=== PATIENT | female | born 1935 | race American Indian/Alaskan Native ===

== ENCOUNTER 2019-07-26 10:02 | Inpatient (IN) | payer MEDICARE ==
--- NOTE | 2019-07-26 10:47 | Emergency Department Report ---
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 Upon admission to [place] It was discussed with family that the patient was not meeting her caloric goals prior to discharge from the hospital and will likely need a PEG tube. Family deferred intervention at that time and wanted a trial to see if patient would eat her own home mad food for better po intake. Increased generalized weakness and decrease responsiveness reported by [facility]. on 07/21 labs sodium was 162. Pt as been receiving IVF D5 125ml/hr since 07/22 without improvement. Pt also pulling out her IV's. At baseline pt can commun icate, Ao x1, and needs maximum assistance with adls. Pt has a signed DNR on chart dated 07/13/19 - Related Data Allergies Allergy/AdvReac Type Severity Reaction Status Date / Time No Known Allergies Allergy Unverified 07/26/19 11:37 ED Review of Systems ROS: Stated complaint: AMS Other details as noted in HPI Comment: All other systems reviewed and negative ED Past Medical Hx - Past Medical History Previous Medical History?: Yes Hx Hypertension: Yes Hx CVA: Yes (right MCA cva 06/2019) Hx Pulmonary Embolism: Yes (06/2019) Hx of Cancer: Yes (L breast ductal carcinoma ) Additional medical history: ARDS, encephalopathy - Surgical History Past Surgical History?: No - Social History Smoking Status: Never Smoker Substance Use Type: None ED Physical Exam - General Limitations: No Limitations, Altered Mental Status - Other Other exam information: General: No acute distress Head: Atraumatic Eyes: normal appearance ENT: Moist mucous membranes Neck: Normal appearance, no midline tenderness Chest: Clear to auscultation bilaterally CV: Regular rate and rhythm Abdomen: Soft, normal bowel sounds, nontender, nondistended, no rebound or guarding Back: Normal inspection Extremity: Normal inspection infection, full range of motion Neuro: Unresponsive, localizes tactile stimuli, not speaking, not following commands, left sided arm with minimal movement, left leg moves in response to stimulation but no antigravity movement. Right arm strength 4/5, right leg 3/5. Into touch grossly intact Psych: Appropriate behavior Skin: No rash ED Course Vital Signs 07/26/19 07/26/19 07/26/19 10:22 10:25 10:30 Temperature 97.9 F Pulse Rate 114 H 119 H 116 H Respiratory 15 14 14 Rate Blood Pressure Blood Pressure 119/35 [Left] O2 Sat by Pulse 100 Oximetry 07/26/19 07/26/19 07/26/19 10:45 11:00 11:30 Temperature Pulse Rate 123 H 127 H 129 H Respiratory 13 15 18 Rate Blood Pressure 120/44 119/35 123/55 Blood Pressure [Left] O2 Sat by Pulse 100 100 61 L Oximetry 07/26/19 07/26/19 07/26/19 12:00 12:30 13:00 Temperature Pulse Rate 126 H 135 H Respiratory 12 16 Rate Blood Pressure 106/52 110/34 102/48 Blood Pressure [Left] O2 Sat by Pulse 92 81 L Oximetry - Consultations Consultation #1: 07/26/19 12:18 Dr rea with nephro consulted, d5w at 150/ml recommended - Lab Data Result diagrams: 07/26/19 10:51 07/26/19 10:51 Lab Results 07/26/19 07/26/19 07/26/19 Range/Units 10:51 10:51 10:51 WBC 10.0 (4.5-11.0) K/mm3 RBC 4.06 (3.65-5.03) M/mm3 Hgb 10.0 L (10.1-14.3) gm/dl Hct 31.4 (30.3-42.9) % MCV 77 L (79-97) fl MCH 25 L (28-32) pg MCHC 32 (30-34) % RDW 21.4 H (13.2-15.2) % Plt Count 397 (140-440) K/mm3 Lymph % (Auto) Manager Event [place] % (Auto) Manager Event Eos % (Auto) Manager Event Baso % (Auto) Manager Event Lymph # Manager Event [place] # Manager Event Eos # Manager Event Baso # Manager Event Add Manual Diff Complete Total Counted 100 Seg Neutrophils % Manager Event Seg Neuts % (Manual) 96.0 H (40.0-70.0) % Band Neutrophils % 0 % Lymphocytes % (Manual) 4.0 L (13.4-35.0) % Reactive Lymphs % (Man) 0 % Monocytes % (Manual) 0 (0.0-7.3) % Eosinophils % (Manual) 0 (0.0-4.3) % Basophils % (Manual) 0 (0.0-1.8) % Metamyelocytes % 0 % Myelocytes % 0 % Promyelocytes % 0 % Blast Cells % 0 % Nucleated RBC % Not Reportable Seg Neutrophils # Manager Event Seg Neutrophils # Man 9.6 H (1.8-7.7) K/mm3 Band Neutrophils # 0.0 K/mm3 Lymphocytes # (Manual) 0.4 L (1.2-5.4) K/mm3 Abs React Lymphs (Man) 0.0 K/mm3 Monocytes # (Manual) 0.0 (0.0-0.8) K/mm3 Eosinophils # (Manual) 0.0 (0.0-0.4) K/mm3 Basophils # (Manual) 0.0 (0.0-0.1) K/mm3 Metamyelocytes # 0.0 K/mm3 Myelocytes # 0.0 K/mm3 Promyelocytes # 0.0 K/mm3 Blast Cells # 0.0 K/mm3 WBC Morphology Not Reportable Hypersegmented Neuts Not Reportable Hyposegmented Neuts Not Reportable Hypogranular Neuts Not Reportable Smudge Cells Not Reportable Toxic Granulation Not Reportable Toxic Vacuolation Not Reportable Dohle Bodies Not Reportable Pelger-Huet Anomaly Not Reportable David Rods Not Reportable Platelet Estimate Consistent w auto Clumped Platelets Not Reportable Plt Clumps, EDTA Not Reportable Large Platelets Few Giant Platelets Not Reportable Platelet Satelliting Not Reportable Plt Morphology Comment Not Reportable RBC Morphology Not Reportable Dimorphic RBCs Not Reportable Polychromasia Few Hypochromasia Few Poikilocytosis Not Reportable Anisocytosis Not Reportable Microcytosis Not Reportable Macrocytosis Not Reportable Spherocytes Few Pappenheimer Bodies Not Reportable Sickle Cells Not Reportable Target Cells Few Tear Drop Cells Not Reportable Ovalocytes Not Reportable Helmet Cells Not Reportable [place] Bodies Not Reportable [place] Rings Not Reportable [place] Cells Not Reportable Bite Cells Not Reportable Crenated Cell Not Reportable Elliptocytes Few Acanthocytes (Spur) Not Reportable Rouleaux Not Reportable Hemoglobin C Crystals Not Reportable Schistocytes Not Reportable Malaria parasites Not Reportable Eddie Bodies Not Reportable Hem Pathologist Commnt No Sodium 166 H* (137-145) mmol/L Potassium 4.6 (3.6-5.0) mmol/L Chloride 130.5 H (98-107) mmol/L Carbon Dioxide 16 L (22-30) mmol/L Anion Gap 24 mmol/L BUN 83 H (7-17) mg/dL Creatinine 1.9 H (0.7-1.2) mg/dL Estimated GFR 25 ml/min BUN/Creatinine Ratio 44 % Glucose 205 H (65-100) mg/dL Calcium 9.9 (8.4-10.2) mg/dL Magnesium 2.90 H (1.7-2.3) mg/dL Total Bilirubin 0.40 (0.1-1.2) mg/dL AST 20 (5-40) units/L ALT 12 (7-56) units/L Alkaline Phosphatase 118 (35-129) units/L Total Protein 7.4 (6.3-8.2) g/dL Albumin 3.3 L (3.9-5) g/dL Albumin/Globulin Ratio 0.8 % Urine Color (Yellow) Urine Turbidity (Clear) Urine pH (5.0-7.0) Ur Specific [place] (1.003-1.030) Urine Protein (Negative) mg/dL Urine Glucose (UA) (Negative) mg/dL Urine Ketones (Negative) mg/dL Urine Blood (Negative) Urine Nitrite (Negative) Urine Bilirubin (Negative) Urine Urobilinogen (<2.0) mg/dL Ur Leukocyte Esterase (Negative) Urine WBC (Auto) (0.0-6.0) /HPF Urine RBC (Auto) (0.0-6.0) /HPF U Epithel Cells (Auto) (0-13.0) /HPF Urine Bacteria (Auto) (Negative) /HPF Hyaline Casts /LPF Urine Mucus /HPF 07/26/ Range/Units 12:53 WBC (4.5-11.0) K/mm3 RBC (3.65-5.03) M/mm3 Hgb (10.1-14.3) gm/dl Hct (30.3-42.9) % MCV (79-97) fl MCH (28-32) pg MCHC (30-34) % RDW (13.2-15.2) % Plt Count (140-440) K/mm3 Lymph % (Auto) [place] % (Auto) Eos % (Auto) Baso % (Auto) Lymph # [place] # Eos # Baso # Add Manual Diff Total Counted Seg Neutrophils % Seg Neuts % (Manual) (40.0-70.0) % Band Neutrophils % % Lymphocytes % (Manual) (13.4-35.0) % Reactive Lymphs % (Man) % Monocytes % (Manual) (0.0-7.3) % Eosinophils % (Manual) (0.0-4.3) % Basophils % (Manual) (0.0-1.8) % Metamyelocytes % % Myelocytes % % Promyelocytes % % Blast Cells % % Nucleated RBC % Seg Neutrophils # Seg Neutrophils # Man (1.8-7.7) K/mm3 Band Neutrophils # K/mm3 Lymphocytes # (Manual) (1.2-5.4) K/mm3 Abs React Lymphs (Man) K/mm3 Monocytes # (Manual) (0.0-0.8) K/mm3 Eosinophils # (Manual) (0.0-0.4) K/mm3 Basophils # (Manual) (0.0-0.1) K/mm3 Metamyelocytes # K/mm3 Myelocytes # K/mm3 Promyelocytes # K/mm3 Blast Cells # K/mm3 WBC Morphology Hypersegmented Neuts Hyposegmented Neuts Hypogranular Neuts Smudge Cells Toxic Granulation Toxic Vacuolation Dohle Bodies Pelger-Huet Anomaly David Rods Platelet Estimate Clumped Platelets Plt Clumps, EDTA Large Platelets Giant Platelets Platelet Satelliting Plt Morphology Comment RBC Morphology Dimorphic RBCs Polychromasia Hypochromasia Poikilocytosis Anisocytosis Microcytosis Macrocytosis Spherocytes Pappenheimer Bodies Sickle Cells Target Cells Tear Drop Cells Ovalocytes Helmet Cells De Oliveira-[place] Bodies [place] Rings [place] Cells Bite Cells Crenated Cell Elliptocytes Acanthocytes (Spur) Rouleaux Hemoglobin C Crystals Schistocytes Malaria parasites Eddie Bodies Hem Pathologist Commnt Sodium (137-145) mmol/L Potassium (3.6-5.0) mmol/L Chloride (98-107) mmol/L Carbon Dioxide (22-30) mmol/L Anion Gap mmol/L BUN (7-17) mg/dL Creatinine (0.7-1.2) mg/dL Estimated GFR ml/min BUN/Creatinine Ratio % Glucose (65-100) mg/dL Calcium (8.4-10.2) mg/dL Magnesium (1.7-2.3) mg/dL Total Bilirubin (0.1-1.2) mg/dL AST (5-40) units/L ALT (7-56) units/L Alkaline Phosphatase (35-129) units/L Total Protein (6.3-8.2) g/dL Albumin (3.9-5) g/dL Albumin/Globulin Ratio % Urine Color Yellow (Yellow) Urine Turbidity Slightly-cloudy (Clear) Urine pH 5.0 (5.0-7.0) Ur Specific [place] 1.013 (1.003-1.030) Urine Protein <15 mg/dl (Negative) mg/dL Urine Glucose (UA) Neg (Negative) mg/dL Urine Ketones Neg (Negative) mg/dL Urine Blood Neg (Negative) Urine Nitrite Neg (Negative) Urine Bilirubin Neg (Negative) Urine Urobilinogen < 2.0 (<2.0) mg/dL Ur Leukocyte Esterase Neg (Negative) Urine WBC (Auto) 3.0 (0.0-6.0) /HPF Urine RBC (Auto) 7.0 (0.0-6.0) /HPF U Epithel Cells (Auto) < 1.0 (0-13.0) /HPF Urine Bacteria (Auto) 1+ (Negative) /HPF Hyaline Casts 1 /LPF Urine Mucus Few /HPF - EKG Data -: EKG Interpreted by Vt EKG shows normal: sinus rhythm, ST-T waves (lat t wave and inv t wave downward slopinng) Rate: tachycardia (117) - Radiology Data Radiology results: report reviewed (ct head: naf) - Medical Decision Making Altered mental status likely secondary to dehydration due to poor by mouth intake. IV fluids ordered as per recommendation of nephrology. Hospitalist informed for admission. - Differential Diagnosis infection, dehydration, ICH Critical Care Time: No Critical care attestation.: If time is entered above; I have spent that time in minutes in the direct care of this critically ill patient, excluding procedure time. ED Disposition Clinical Impression: Altered mental state, Dehydration, Renal insufficiency, Hx of ischemic right MCA stroke, Breast cancer, left, Hx of pulmonary embolus, Current use of anticoagulant therapy Disposition: OP ADMIT IP TO THIS HOSP Is pt being admited?: Yes Condition: Stable Time of Disposition: 13:38 (Dr pruett/hosp)
[2019-07-26 11:21] LABS: Hematocrit 31.4 % (30.3-42.9); Mean Corpuscular HGB Conc 32 % (30-34); Mean Corpuscular Volume 77 fl (79-97); Platelet Count 397 K/mm3 (140-440); Red Blood Count 4.06 M/mm3 (3.65-5.03)
[2019-07-26 11:25] LABS: Red Cell Distribution Width 21.4 % (13.2-15.2)
[2019-07-26 11:42] LABS: Albumin 3.3 g/dL (3.9-5); Calcium 9.9 mg/dL (8.4-10.2)
[2019-07-26] MEDS ORDERED: DEXTROSE 5% IN WATER 1,000 ML IV SCH ×2 (13:00→17:00)
[2019-07-26 13:05] LABS: Basophils % (Manual) 0 % (0.0-1.8); Eosinophils % (Manual) 0 % (0.0-4.3); Monocytes % (Manual) 0 % (0.0-7.3); Total Cells Counted 100
[2019-07-26 13:07] LABS: Hypochromasia Few; Spherocytes Few; Target Cells Few
[2019-07-26 13:08] LABS: Large Platelets Few; Platelet Estimate Consistent w Auto
[2019-07-26 13:11] LABS: Bacteria,Urine 1+ /HPF (Negative); Bilirubin,Urine NEG (Negative); Blood,Urine NEG (Negative); Color,Urine Yellow (Yellow); Hyaline Casts,Urine 1 /LPF; Mucus,Urine FEW /HPF; Protein,Urine <15 mg/dL mg/dL (Negative); Urobilinogen,Urine < 2.0 mg/dL (<2.0)
--- NOTE | 2019-07-26 13:26 | Cat Scan Report ---
CT head/brain wo con INDICATION / CLINICAL INFORMATION: 84 years Female; ams. TECHNIQUE: Routine CT head without contrast. All CT scans at this location are performed using CT dos e reduction for ALARA by means of automated exposure control. COMPARISON: None. FINDINGS: BRAIN / INTRACRANIAL CONTENTS: Subacute to chronic branch MCA infarct suggested in the right frontopa rietal temporal region. It might be difficult to evaluate for small, catherine-infarct areas of acute isch emia in this region without diffusion imaging by MRI. Small lacunar infarct is seen in the lateral thalamic region on the left. Otherwise, no acute hemorrhage, mass effect, midline shift, hydrocephalus, or acute, large territori al infarct. Mild to moderate cerebral and cerebellar atrophy. There are mild areas of decreased attenuation in the white matter of the cerebral hemispheres. These are nonspecific findings and may be related to microangiopathy (hypertension, diabetes, atheroscleros is), given the patient's age. It might be difficult to evaluate for small areas of ischemia without d iffusion imaging by MRI. CRANIOCERVICAL JUNCTION: No significant abnormality. ORBITS: No significant abnormality of visualized orbits. SINUSES / MASTOIDS: Desiccated secretions seen in the inferior maxillary antrum on the left. 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 No significant atherosclerotic disease appreciated. IMPRESSION: 1. No focal mass, hemorrhage, hydrocephalus, or acute, large territorial infarct. Diffusion imaging b y MRI may be helpful, as described above. Signer Name: Rishi Young MD, III Signed: 07/26/2019 1:22 PM Workstation Name: [id number]
[2019-07-26] MEDS ORDERED: HYDROmorphone 1 MG/1 ML INJ IV PRN (16:31)
[2019-07-26] MEDS ORDERED: oxyCODONE /ACETAMINOPHEN 5-325MG TAB PO PRN (16:31)
[2019-07-26] MEDS ORDERED: ACETAMINOPHEN 325 MG TAB PO PRN (16:31)
[2019-07-26] MEDS ORDERED: ONDANSETRON 4 MG/2 ML INJ IV PRN (16:31)
--- NOTE | 2019-07-26 16:31 | History and Physical Report ---
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 Upon admission to [place] It was discussed with family that the patient was not meeting her caloric goals prior to discharge from the hospital and will likely need a PEG tube. Family deferred intervention at that time and wanted a trial to see if patient would eat her own home made food for better po intake. Increased generalized weakness and decrease responsiveness reported by [facility]. on 07/21 labs sodium was 162. Pt as been receiving IVF D5 125ml/hr since 07/22 without improvement. Pt also pulling out her IV's. At baseline pt can communicate, Ao x1, and needs maximum assistance with adls. Pt has a signed DNR on chart dated 07/13/19 Past Medical History Previous Medical History?: Yes Hypertension: Yes CVA: Yes (right MCA cva 06/2019) Pulmonary Embolism: Yes (06/2019) L breast ductal carcinoma ) Additional medical history: ARDS, encephalopathy Surgical History Past Surgical History?: No Social History Smoking Status: Never Smoker Substance Use Type: None Family History Htn Review of Systems ROS: Stated complaint: AMS Other details as noted in HPI Comment: All other systems reviewed and negative Medications and Allergies Allergies Allergy/AdvReac Type Severity Reaction Status Date / Time No Known Allergies Allergy Unverified 07/26/19 11:37 Home Medications Medication Instructions Recorded Confirmed Last Taken Type Apixaban 5 mg PO BID 07/26/19 07/26/19 Unknown History Ascorbic Acid 500 mg PO DAILY 07/26/19 07/26/19 Unknown History Cholecalciferol Vit D3 1,000 units PO DAILY 07/26/19 07/26/19 Unknown History Colace ORAL LIQ 100 mg PO BID 07/26/19 07/26/19 Unknown History Duloxetine HCl 30 mg PO DAILY 07/26/19 07/26/19 Unknown History Ferrous Sulfate 325 mg PO DAILY 07/26/19 07/26/19 Unknown History Lipitor 40 mg PO QHS 07/26/19 07/26/19 Unknown History Lisinopril 20 mg PO DAILY 07/26/19 07/26/19 Unknown History Melatonin 3 mg PO QHS 07/26/19 07/26/19 Unknown History Miralax 17 gm PO DAILY 07/26/19 07/26/19 Unknown History Norvasc 5 mg PO DAILY 07/26/19 07/26/19 Unknown History Potassium 1 meq PO DAILY 07/26/19 07/26/19 Unknown History Zinc Sulfate 1 cap PO DAILY 07/26/19 07/26/19 Unknown History predniSONE 50 mg PO QHS 07/26/19 07/26/19 Unknown History Active Meds: Active Medications Dextrose (D5w) 1,000 mls @ 150 mls/hr IV DIRECT TERI Exam - Constitutional Vitals: Temp Pulse Resp BP Pulse Ox 97.9 F 120 H 16 102/66 100 07/26/19 10:22 07/26/19 13:50 07/26/19 12:30 07/26/19 15:00 07/26/19 15:00 General appearance: Present: no acute distress, well-nourished, other - EENT Eyes: Present: PERRL ENT: hearing intact, clear oral mucosa, other (Dry Tongue) - Neck Neck: Present: supple, normal ROM - Respiratory Respiratory effort: normal Respiratory: bilateral: CTA Details: Chest L Breast fungating mass 6cmx4 cmx3cm - Cardiovascular Heart rate: 117 Rhythm: regular Heart Sounds: Present: S1 & S2. Absent: rub, click - Extremities Extremities: no ischemia, pulses intact, pulses symmetrical, No edema Peripheral Pulses: within normal limits - Abdominal General gastrointestinal: Present: soft, non-tender, non-distended, normal bowel sounds Female genitourinary: Present: normal - Rectal Rectal Exam: deferred - Integumentary Integumentary: Present: clear, warm, dry - Musculoskeletal Musculoskeletal: gait normal, strength equal bilaterally - Psychiatric Psychiatric: appropriate mood/affect, intact judgment & insight - Neurologic Neurologic: CNII-XII intact, moves all extremities - Allied Health Allied health notes reviewed: nursing, case management Results - Labs CBC & Chem 7: 07/26/19 10:51 07/27/19 03:18 Labs: Laboratory Last Values WBC 10.0 K/mm3 (4.5-11.0) 07/26/19 10:51 RBC 4.06 M/mm3 (3.65-5.03) 07/26/19 10:51 Hgb 10.0 gm/dl (10.1-14.3) L 07/26/19 10:51 Hct 31.4 % (30.3-42.9) 07/26/19 10:51 MCV 77 fl (79-97) L 07/26/19 10:51 MCH 25 pg (28-32) L 07/26/19 10:51 MCHC 32 % (30-34) 07/26/19 10:51 RDW 21.4 % (13.2-15.2) H 07/26/19 10:51 Plt Count 397 K/mm3 (140-440) 07/26/19 10:51 Lymph % (Auto) [facility] 07/26/19 10:51 [place] % (Auto) Freight Associate 07/26/19 10:51 Eos % (Auto) Freight Associate 07/26/19 10:51 Baso % (Auto) Freight Associate 07/26/19 10:51 Lymph # Freight Associate 07/26/19 10:51 [place] # Freight Associate 07/26/19 10:51 Eos # Freight Associate 07/26/19 10:51 Baso # Freight Associate 07/26/19 10:51 Add Manual Diff Complete 07/26/19 10:51 Total Counted 100 07/26/19 10:51 Seg Neutrophils % Freight Associate 07/26/19 10:51 Seg Neuts % (Manual) 96.0 % (40.0-70.0) H 07/26/19 10:51 Band Neutrophils % 0 % 07/26/19 10:51 Lymphocytes % (Manual) 4.0 % (13.4-35.0) L 07/26/19 10:51 Reactive Lymphs % (Man) 0 % 07/26/19 10:51 Monocytes % (Manual) 0 % (0.0-7.3) 07/26/19 10:51 Eosinophils % (Manual) 0 % (0.0-4.3) 07/26/19 10:51 Basophils % (Manual) 0 % (0.0-1.8) 07/26/19 10:51 Metamyelocytes % 0 % 07/26/19 10:51 Myelocytes % 0 % 07/26/19 10:51 Promyelocytes % 0 % 07/26/19 10:51 Blast Cells % 0 % 07/26/19 10:51 Nucleated RBC % Not Reportable 07/26/19 10:51 Seg Neutrophils # Freight Associate 07/26/19 10:51 Seg Neutrophils # Man 9.6 K/mm3 (1.8-7.7) H 07/26/19 10:51 Band Neutrophils # 0.0 K/mm3 07/26/19 10:51 Lymphocytes # (Manual) 0.4 K/mm3 (1.2-5.4) L 07/26/19 10:51 Abs React Lymphs (Man) 0.0 K/mm3 07/26/19 10:51 Monocytes # (Manual) 0.0 K/mm3 (0.0-0.8) 07/26/19 10:51 Eosinophils # (Manual) 0.0 K/mm3 (0.0-0.4) 07/26/19 10:51 Basophils # (Manual) 0.0 K/mm3 (0.0-0.1) 07/26/19 10:51 Metamyelocytes # 0.0 K/mm3 07/26/19 10:51 Myelocytes # 0.0 K/mm3 07/26/19 10:51 Promyelocytes # 0.0 K/mm3 07/26/19 10:51 Blast Cells # 0.0 K/mm3 07/26/19 10:51 WBC Morphology Not Reportable 07/26/19 10:51 Hypersegmented Neuts Not Reportable 07/26/19 10:51 Hyposegmented Neuts Not Reportable 07/26/19 10:51 Hypogranular Neuts Not Reportable 07/26/19 10:51 Smudge Cells Not Reportable 07/26/19 10:51 Toxic Granulation Not Reportable 07/26/19 10:51 Toxic Vacuolation Not Reportable 07/26/19 10:51 Dohle Bodies Not Reportable 07/26/19 10:51 Pelger-Huet Anomaly Not Reportable 07/26/19 10:51 David Rods Not Reportable 07/26/19 10:51 Platelet Estimate Consistent w auto 07/26/19 10:51 Clumped Platelets Not Reportable 07/26/19 10:51 Plt Clumps, EDTA Not Reportable 07/26/19 10:51 Large Platelets Few 07/26/19 10:51 Giant Platelets Not Reportable 07/26/19 10:51 Platelet Satelliting Not Reportable 07/26/19 10:51 Plt Morphology Comment Not Reportable 07/26/19 10:51 RBC Morphology Not Reportable 07/26/19 10:51 Dimorphic RBCs Not Reportable 07/26/19 10:51 Polychromasia Few 07/26/19 10:51 Hypochromasia Few 07/26/19 10:51 Poikilocytosis Not Reportable 07/26/19 10:51 Anisocytosis Not Reportable 07/26/19 10:51 Microcytosis Not Reportable 07/26/19 10:51 Macrocytosis Not Reportable 07/26/19 10:51 Spherocytes Few 07/26/19 10:51 Pappenheimer Bodies Not Reportable 07/26/19 10:51 Sickle Cells Not Reportable 07/26/19 10:51 Target Cells Few 07/26/19 10:51 Tear Drop Cells Not Reportable 07/26/19 10:51 Ovalocytes Not Reportable 07/26/19 10:51 Helmet Cells Not Reportable 07/26/19 10:51 [place] Bodies Not Reportable 07/26/19 10:51 Britt Rings Not Reportable 07/26/19 10:51 [place] Cells Not Reportable 07/26/19 10:51 Bite Cells Not Reportable 07/26/19 10:51 Crenated Cell Not Reportable 07/26/19 10:51 Elliptocytes Few 07/26/19 10:51 Acanthocytes (Spur) Not Reportable 07/26/19 10:51 Rouleaux Not Reportable 07/26/19 10:51 Hemoglobin C Crystals Not Reportable 07/26/19 10:51 Schistocytes Not Reportable 07/26/19 10:51 Malaria parasites Not Reportable 07/26/19 10:51 Eddie Bodies Not Reportable 07/26/19 10:51 Hem Pathologist Commnt No 07/26/19 10:51 Sodium 166 mmol/L (137-145) H* 07/26/19 10:51 Potassium 4.6 mmol/L (3.6-5.0) 07/26/19 10:51 Chloride 130.5 mmol/L (98-107) H 07/26/19 10:51 Carbon Dioxide 16 mmol/L (22-30) L 07/26/19 10:51 Anion Gap 24 mmol/L 07/26/19 10:51 BUN 83 mg/dL (7-17) H 07/26/19 10:51 Creatinine 1.9 mg/dL (0.7-1.2) H 07/26/19 10:51 Estimated GFR 25 ml/min 07/26/19 10:51 BUN/Creatinine Ratio 44 % 07/26/19 10:51 Glucose 205 mg/dL (65-100) H 07/26/19 10:51 POC Glucose 232 (70-105) H 07/26/19 10:45 Calcium 9.9 mg/dL (8.4-10.2) 07/26/19 10:51 Magnesium 2.90 mg/dL (1.7-2.3) H 07/26/19 10:51 Total Bilirubin 0.40 mg/dL (0.1-1.2) 07/26/19 10:51 AST 20 units/L (5-40) 07/26/19 10:51 ALT 12 units/L (7-56) 07/26/19 10:51 Alkaline Phosphatase 118 units/L (35-129) 07/26/19 10:51 Total Protein 7.4 g/dL (6.3-8.2) 07/26/19 10:51 Albumin 3.3 g/dL (3.9-5) L 07/26/19 10:51 Albumin/Globulin Ratio 0.8 % 07/26/19 10:51 Urine Color Yellow (Yellow) 07/26/19 12:53 Urine Turbidity Slightly-cloudy (Clear) 07/26/19 12:53 Urine pH 5.0 (5.0-7.0) 07/26/19 12:53 Ur Specific [place] 1.013 (1.003-1.030) 07/26/19 12:53 Urine Protein <15 mg/dl mg/dL (Negative) 07/26/19 12:53 Urine Glucose (UA) Neg mg/dL (Negative) 07/26/19 12:53 Urine Ketones Neg mg/dL (Negative) 07/26/19 12:53 Urine Blood Neg (Negative) 07/26/19 12:53 Urine Nitrite Neg (Negative) 07/26/19 12:53 Urine Bilirubin Neg (Negative) 07/26/19 12:53 Urine Urobilinogen < 2.0 mg/dL (<2.0) 07/26/19 12:53 Ur Leukocyte Esterase Neg (Negative) 07/26/19 12:53 Urine WBC (Auto) 3.0 /HPF (0.0-6.0) 07/26/19 12:53 Urine RBC (Auto) 7.0 /HPF (0.0-6.0) 07/26/19 12:53 U Epithel Cells (Auto) < 1.0 /HPF (0-13.0) 07/26/19 12:53 Urine Bacteria (Auto) 1+ /HPF (Negative) 07/26/19 12:53 Hyaline Casts 1 /LPF 07/26/19 12:53 Urine Mucus Few /HPF 07/26/19 12:53 Short CBC 07/26/19 Range/Units 10:51 WBC 10.0 (4.5-11.0) K/mm3 Hgb 10.0 L (10.1-14.3) gm/dl Hct 31.4 (30.3-42.9) % Plt Count 397 (140-440) K/mm3 BMP 07/26/19 10:51 Sodium 166 H* Potassium 4.6 Chloride 130.5 H Carbon Dioxide 16 L BUN 83 H Creatinine 1.9 H Glucose 205 H Calcium 9.9 Liver Function 07/26/19 Range/Units 10:51 Total Bilirubin 0.40 (0.1-1.2) mg/dL AST 20 (5-40) units/L ALT 12 (7-56) units/L Alkaline Phosphatase 118 (35-129) units/L Albumin 3.3 L (3.9-5) g/dL Urine 07/26/19 Range/Units 12:53 Urine Color Yellow (Yellow) Urine pH 5.0 (5.0-7.0) Ur Specific [place] 1.013 (1.003-1.030) Urine Protein <15 mg/dl (Negative) mg/dL Urine Glucose (UA) Neg (Negative) mg/dL - Imaging and Cardiology EKG: report reviewed (Sinus Tachycardia) CT Scan - head: report reviewed (No acute findings) Assessment and Plan Advance Directives: Yes Plan of care discussed with patient/family: Yes - Patient Problems (1) Acute encephalopathy Current Visit: Yes Status: Acute Plan to address problem: Sec to dehydration and High Na levels Metabolic (2) Hypernatremia Current Visit: Yes Status: Acute Plan to address problem: IV D5w for now (3) EDILMA (acute kidney injury) Current Visit: Yes Status: Acute Plan to address problem: IV Fluids for now C/w ATN Monitor creatinine (4) Breast cancer Current Visit: Yes Status: Chronic Qualifiers: Breast location: central portion of breast Plan to address problem: Fungating mass F/u with Dr Carreon as outpatient (5) HTN (hypertension) Current Visit: Yes Status: Chronic Qualifiers: Hypertension type: essential hypertension Qualified Code(s): I10 - Essential (primary) hypertension Plan to address problem: On Catapress patch (6) Poor fluid intake Current Visit: Yes Status: Chronic Plan to address problem: Will need PEG GI consult (7) Malnutrition Current Visit: Yes Status: Chronic Qualifiers: Malnutrition type: protein-calorie malnutrition Protein-calorie malnutri tion severity: moderate Qualified Code(s): E44.0 - Moderate protein-calorie malnutrition Plan to address problem: Dietitian consult (8) DVT prophylaxis Current Visit: Yes Status: Acute Plan to address problem: On Eliquis and GI prophylaxis
[2019-07-26] MEDS ORDERED: FAMOTIDINE 20 MG TAB PO SCH ×2 (22:00)
[2019-07-27] MEDS ORDERED: ACETAMINOPHEN 325 MG TAB PO PRN (01:42)
[2019-07-27] MEDS ORDERED: ONDANSETRON 4 MG/2 ML INJ IV PRN (01:42)
[2019-07-27] MEDS ORDERED: NON-FORMULARY EACH (Apixaban 5 MG) PO SCH (01:45)
[2019-07-27] MEDS: D5W/0.45% NACL 1,000 ML IV SCH ×4 (02:42→22:56)
[2019-07-27] MEDS: APIXABAN 5 MG TAB PO SCH ×3 (02:43→21:44)
[2019-07-27 04:36] LABS: Albumin 3.1 g/dL (3.9-5); Calcium 9.4 mg/dL (8.4-10.2)
[2019-07-27 08:24] LABS: Basophils % (Auto) 0.3 % (0.0-1.8); Eosinophils % (Auto) 0.2 % (0.0-4.3); Hematocrit 28.1 % (30.3-42.9); Hemoglobin 8.8 gm/dl (10.1-14.3); Lymphocytes # (Auto) 1.1 K/mm3 (1.2-5.4); Lymphocytes % (Auto) 9.3 % (13.4-35.0); Mean Corpuscular HGB Conc 31 % (30-34); Mean Corpuscular Volume 77 fl (79-97); Monocytes # (Auto) 0.8 K/mm3 (0.0-0.8); Monocytes % (Auto) 6.8 % (0.0-7.3); Platelet Count 321 K/mm3 (140-440); Red Blood Count 3.65 M/mm3 (3.65-5.03)
[2019-07-27 08:27] LABS: Red Cell Distribution Width 22.1 % (13.2-15.2)
[2019-07-27] MEDS: FAMOTIDINE 20 MG/2 ML INJ IV SCH ×2 (09:38→21:44)
[2019-07-27] MEDS ORDERED: FAMOTIDINE 20 MG/2 ML INJ IV SCH (10:00)
[2019-07-27] MEDS ORDERED: cloNIDine TTS 0.2 MG/24 HR PATCH TD SCH (10:00)
--- NOTE | 2019-07-27 12:31 | Consultation ---
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 No PEG tube placed previously but was discussed with family. History obtained from chart review, as patient unable to provide history herself. In short, she was found to have weakness and decreased responsiveness reported by [facility], with labs on 07/21 showing sodium of 162; she was reportedly on D5W 125ml/hr since 07/22 but was noted to be pulling her IV lines. Past History Past Medical History: cancer, pulmonary embolism, stroke Past Surgical History: No surgical history Social history: no significant social history Family history: no significant family history Medications and Allergies Allergies Allergy/AdvReac Type Severity Reaction Status Date / Time No Known Allergies Allergy Unverified 07/26/19 11:37 Home Medications Medication Instructions Recorded Confirmed Last Taken Type Apixaban 5 mg PO BID 07/26/19 07/26/19 Unknown History Ascorbic Acid 500 mg PO DAILY 07/26/19 07/26/19 Unknown History Cholecalciferol Vit D3 1,000 units PO DAILY 07/26/19 07/26/19 Unknown History Colace ORAL LIQ 100 mg PO BID 07/26/19 07/26/19 Unknown History Duloxetine HCl 30 mg PO DAILY 07/26/19 07/26/19 Unknown History Ferrous Sulfate 325 mg PO DAILY 07/26/19 07/26/19 Unknown History Lipitor 40 mg PO QHS 07/26/19 07/26/19 Unknown History Lisinopril 20 mg PO DAILY 07/26/19 07/26/19 Unknown History Melatonin 3 mg PO QHS 07/26/19 07/26/19 Unknown History Miralax 17 gm PO DAILY 07/26/19 07/26/19 Unknown History Norvasc 5 mg PO DAILY 07/26/19 07/26/19 Unknown History Potassium 1 meq PO DAILY 07/26/19 07/26/19 Unknown History Zinc Sulfate 1 cap PO DAILY 07/26/19 07/26/19 Unknown History predniSONE 50 mg PO QHS 07/26/19 07/26/19 Unknown History Active Meds: Active Medications Acetaminophen (Tylenol) 650 mg PO Q4H PRN PRN Reason: Pain MILD(1-3)/Fever >100.5/PAYAN Apixaban (Eliquis) 5 mg PO BID [facility] Last Admin: 07/27/19 09:39 Dose: 5 mg Documented by: Clonidine HCl (Catapres-Tts Patch) 0.2 mg TD Mo [facility] Last Admin: 07/27/19 09:35 Dose: 0.2 mg Documented by: Famotidine (Pepcid) 10 mg IV BID [facility] Last Admin: 07/27/19 09:38 Dose: 10 mg Documented by: Hydromorphone HCl (Dilaudid) 0.5 mg IV Q3H PRN PRN Reason: Pain , Severe (7-10) Dextrose/Sodium Chloride (D5/0.45ns) 1,000 mls @ 150 mls/hr IV DIRECT [facility] Last Admin: 07/27/19 09:34 Dose: 150 mls/hr Documented by: Ondansetron HCl (Zofran) 4 mg IV Q8H PRN PRN Reason: Nausea And Vomiting Oxycodone/Acetaminophen (Percocet 5/325) 1 tab PO Q6H PRN PRN Reason: Pain, Moderate (4-6) Sodium Chloride (Sodium Chloride Flush Syringe 10 Ml) 10 ml IV BID [facility] Last Admin: 07/27/19 09:40 Dose: 10 ml Documented by: Sodium Chloride (Sodium Chloride Flush Syringe 10 Ml) 10 ml IV PRN PRN PRN Reason: LINE FLUSH Review of Systems ROS unobtainable: due to mental status Exam - Vital Signs Vital signs: Vital Signs Temp Pulse Resp BP Pulse Ox 97.9 F 114 H 15 119/35 100 07/26/19 10:22 07/26/19 10:22 07/26/19 10:22 07/26/19 10:22 07/26/19 10:22 - Physical Exam Narrative exam: General appearance: no acute distress, chronically ill appearing Eyes: PERRL ENT: hearing intact Neck: supple, normal ROM Respiratory: bilateral CTA, left breast mass noted CV: RRR, S1/S2 Extremities: no ischemia, pulses intact, pulses symmetrical, No edema Peripheral Pulses: within normal limits Gastrointestinal: soft, non-tender, non-distended, normal bowel sounds Integumentary: Present: clear, warm, dry Musculoskeletal: gait normal, strength equal bilaterally Psychiatric: confused Neurologic: confused, unable to respond to commands, moves extremities spontaneously Results - Lab Results 07/27/19 07:29 07/27/19 03:18 Most recent lab results Calcium 9.4 mg/dL (8.4-10.2) 07/27/19 03:18 Magnesium 2.90 mg/dL (1.7-2.3) H 07/26/19 10:51 Assessment and Plan # Hypernatremia: likely with decreased thirst mechanism and inability to drink free water in setting of stroke. Improving with D5 1/2NS; ok to continue for now. Agree with GI consult for potential PEG tube placement to allow for free water replacement - daily labs # EDILMA: likely pre-renal and improving with IVF; defer further workup for now. Continue checo-protective measures including avoidance of nephrotoxins, renally dosing meds # Acidosis: likely in setting of EDILMA, but may be worsened by IVF and dilutional acidosis. Start NaHCO3 if worsening tomorrow # HTN: BP reasonable for age. Continue clonidine patch # Hypoalbuminemia: consistent with malnutrition; appreciate GI and dietary recs # Microcytic Anemia: would check for iron deficiency and replete Thank you for this interesting consult; our team will continue to follow with you.
--- NOTE | 2019-07-27 13:39 | Gastroenterology Consultation ---
<JOSE MARTIN POLLARD - Last Filed: 07/27/19 13:42> History of Present Illness - Reason for Consult Consult date: 07/27/19 PEG evaluation / Poor PO intake Requesting physician: TUSHAR WOODALL - History of Present Illness Ms Jama is an 84 y/o [facility]. She was recently hospitalized at [facility] with respiratory failure/ PE -07/2019. She has a past medical hx of left breast CA, previous CVA with left sided weakness. The family previously declined PEG and wanted to see if the patient would start to eat on her own, however, family reports while in rehab, she did not eat very much or drink very much even when they would feed her. On admission the patient was found to have a NA level of 162. BUN/ Creat elevated. Family reconsidering PEG placement. Past History Past Medical History: cancer, pulmonary embolism, stroke Past Surgical History: hysterectomy Social history: lives with family, AND/DNR-allow natural Family history: no significant family history Medications and Allergies Allergies Allergy/AdvReac Type Severity Reaction Status Date / Time No Known Allergies Allergy Unverified 07/26/19 11:37 Home Medications Medication Instructions Recorded Confirmed Last Taken Type Apixaban 5 mg PO BID 07/26/19 07/26/19 Unknown History Ascorbic Acid 500 mg PO DAILY 07/26/19 07/26/19 Unknown History Cholecalciferol Vit D3 1,000 units PO DAILY 07/26/19 07/26/19 Unknown History Colace ORAL LIQ 100 mg PO BID 07/26/19 07/26/19 Unknown History Duloxetine HCl 30 mg PO DAILY 07/26/19 07/26/19 Unknown History Ferrous Sulfate 325 mg PO DAILY 07/26/19 07/26/19 Unknown History Lipitor 40 mg PO QHS 07/26/19 07/26/19 Unknown History Lisinopril 20 mg PO DAILY 07/26/19 07/26/19 Unknown History Melatonin 3 mg PO QHS 07/26/19 07/26/19 Unknown History Miralax 17 gm PO DAILY 07/26/19 07/26/19 Unknown History Norvasc 5 mg PO DAILY 07/26/19 07/26/19 Unknown History Potassium 1 meq PO DAILY 07/26/19 07/26/19 Unknown History Zinc Sulfate 1 cap PO DAILY 07/26/19 07/26/19 Unknown History predniSONE 50 mg PO QHS 07/26/19 07/26/19 Unknown History Active Meds: Active Medications Acetaminophen (Tylenol) 650 mg PO Q4H PRN PRN Reason: Pain MILD(1-3)/Fever >100.5/PAYAN Apixaban (Eliquis) 5 mg PO BID [facility] Last Admin: 07/27/19 09:39 Dose: 5 mg Documented by: Clonidine HCl (Catapres-Tts Patch) 0.2 mg TD Mo [facility] Last Admin: 07/27/19 09:35 Dose: 0.2 mg Documented by: Famotidine (Pepcid) 10 mg IV BID [facility] Last Admin: 07/27/19 09:38 Dose: 10 mg Documented by: Hydromorphone HCl (Dilaudid) 0.5 mg IV Q3H PRN PRN Reason: Pain , Severe (7-10) Dextrose/Sodium Chloride (D5/0.45ns) 1,000 mls @ 150 mls/hr IV DIRECT [facility] Last Admin: 07/27/19 09:34 Dose: 150 mls/hr Documented by: Ondansetron HCl (Zofran) 4 mg IV Q8H PRN PRN Reason: Nausea And Vomiting Oxycodone/Acetaminophen (Percocet 5/325) 1 tab PO Q6H PRN PRN Reason: Pain, Moderate (4-6) Sodium Chloride (Sodium Chloride Flush Syringe 10 Ml) 10 ml IV BID [facility] Last Admin: 07/27/19 09:40 Dose: 10 ml Documented by: Sodium Chloride (Sodium Chloride Flush Syringe 10 Ml) 10 ml IV PRN PRN PRN Reason: LINE FLUSH Review of Systems - Review of Systems ROS unobtainable: due to mental status Exam - Constitutional Vital Signs: Temp Pulse Resp BP Pulse Ox 98.7 F 102 H 18 146/70 99 07/27/19 08:00 07/27/19 09:35 07/27/19 08:19 07/27/19 09:35 07/27/19 08:19 General appearance: no acute distress - EENT Eyes: EOM intact ENT: hearing intact - Neck Neck: supple - Respiratory Respiratory: bilateral: diminished - Cardiovascular Rhythm: regular Heart Sounds: Present: S1 & S2 Extremities: abnormal (left sided weakness) - Gastrointestinal General gastrointestinal: Present: soft, non-tender, normal bowel sounds Rectal Exam: deferred - Integumentary Integumentary: Present: warm, dry - Neurologic Neurological: other (awake, pt does not verbalize ) - Psychiatric Psychiatric: cooperative - Labs CBC & Chem 7: 07/27/19 07:29 07/27/19 03:18 Lab Results: Laboratory Results - last 24 hr 07/26/19 07/27/19 07/27/19 10:45 03:18 07:29 WBC 11.6 H RBC 3.65 Hgb 8.8 L Hct 28.1 L MCV 77 L MCH 24 L MCHC 31 RDW 22.1 H Plt Count 321 Lymph % (Auto) 9.3 L [place] % (Auto) 6.8 Eos % (Auto) 0.2 Baso % (Auto) 0.3 Lymph # 1.1 L [place] # 0.8 Eos # 0.0 Baso # 0.0 Seg Neutrophils % 83.4 H Seg Neutrophils # 9.6 H Sodium 156 H D Potassium 4.3 Chloride 126.3 H Carbon Dioxide 13 L Anion Gap 21 BUN 75 H Creatinine 1.7 H Estimated GFR 35 BUN/Creatinine Ratio 44 Glucose 269 H POC Glucose 232 H Hemoglobin A1c Calcium 9.4 Total Bilirubin 0.40 AST 30 ALT 13 Alkaline Phosphatase 107 Total Protein 7.2 Albumin 3.1 L Albumin/Globulin Ratio 0.8 07/27/19 07:29 WBC RBC Hgb Hct MCV MCH MCHC RDW Plt Count Lymph % (Auto) [place] % (Auto) Eos % (Auto) Baso % (Auto) Lymph # [place] # Eos # Baso # Seg Neutrophils % Seg Neutrophils # Sodium Potassium Chloride Carbon Dioxide Anion Gap BUN Creatinine Estimated GFR BUN/Creatinine Ratio Glucose POC Glucose Hemoglobin A1c 5.9 Calcium Total Bilirubin AST ALT Alkaline Phosphatase Total Protein Albumin Albumin/Globulin Ratio Assessment and Plan 1. Malnutrition 2. Hypernatremia 3. Hx of CVA 4. Hx of PE on Eliquis 5. Elevated BUN/ Creat. - Pt is currently on Eliquis. Son is at bedside and wants to talk to another family member prior to going forward with PEG. D/W son and regarding benefits vs risk. Pt will need to be off of Eliquis 48 hours if family is agreeable to PEG. - PC NETWORK TECHNICIAN evaluation to give diet orders ( pt was on pureed/ nectar thickened liquids before. - Monitor H/H noted today that is decreased, suspect this was related to hemo- concentration on admission, rather than actual drop. - Check INR - Further recommendations to follow. <DEMETRICE AHN - Last Filed: 07/27/19 19:32> Medications and Allergies Active Meds: Active Medications Acetaminophen (Tylenol) 650 mg PO Q4H PRN PRN Reason: Pain MILD(1-3)/Fever >100.5/PAYAN Apixaban (Eliquis) 5 mg PO BID [facility] Last Admin: 07/27/19 09:39 Dose: 5 mg Documented by: Clonidine HCl (Catapres-Tts Patch) 0.2 mg TD Mo [facility] Last Admin: 07/27/19 09:35 Dose: 0.2 mg Documented by: Famotidine (Pepcid) 10 mg IV BID [facility] Last Admin: 07/27/19 09:38 Dose: 10 mg Documented by: Hydromorphone HCl (Dilaudid) 0.5 mg IV Q3H PRN PRN Reason: Pain , Severe (7-10) Dextrose/Sodium Chloride (D5/0.45ns) 1,000 mls @ 150 mls/hr IV DIRECT [facility] Last Admin: 07/27/19 15:57 Dose: 150 mls/hr Documented by: Ondansetron HCl (Zofran) 4 mg IV Q8H PRN PRN Reason: Nausea And Vomiting Oxycodone/Acetaminophen (Percocet 5/325) 1 tab PO Q6H PRN PRN Reason: Pain, Moderate (4-6) Sodium Chloride (Sodium Chloride Flush Syringe 10 Ml) 10 ml IV BID [facility] Last Admin: 07/27/19 09:40 Dose: 10 ml Documented by: Sodium Chloride (Sodium Chloride Flush Syringe 10 Ml) 10 ml IV PRN PRN PRN Reason: LINE FLUSH Exam - Constitutional Vital Signs: Temp Pulse Resp BP Pulse Ox 98.4 F 90 20 153/65 100 07/27/19 13:14 07/27/19 13:14 07/27/19 13:14 07/27/19 13:14 07/27/19 13:14 - Labs CBC & Chem 7: 07/27/19 07:29 07/27/19 03:18 Lab Results: Laboratory Results - last 24 hr 07/27/19 07/27/19 07/27/19 03:18 07:29 07:29 WBC 11.6 H RBC 3.65 Hgb 8.8 L Hct 28.1 L MCV 77 L MCH 24 L MCHC 31 RDW 22.1 H Plt Count 321 Lymph % (Auto) 9.3 L [place] % (Auto) 6.8 Eos % (Auto) 0.2 Baso % (Auto) 0.3 Lymph # 1.1 L [place] # 0.8 Eos # 0.0 Baso # 0.0 Seg Neutrophils % 83.4 H Seg Neutrophils # 9.6 H PT INR Sodium 156 H D Potassium 4.3 Chloride 126.3 H Carbon Dioxide 13 L Anion Gap 21 BUN 75 H Creatinine 1.7 H Estimated GFR 35 BUN/Creatinine Ratio 44 Glucose 269 H Hemoglobin A1c 5.9 Calcium 9.4 Total Bilirubin 0.40 AST 30 ALT 13 Alkaline Phosphatase 107 Total Protein 7.2 Albumin 3.1 L Albumin/Globulin Ratio 0.8 07/27/19 14:06 WBC RBC Hgb Hct MCV MCH MCHC RDW Plt Count Lymph % (Auto) [place] % (Auto) Eos % (Auto) Baso % (Auto) Lymph # [place] # Eos # Baso # Seg Neutrophils % Seg Neutrophils # PT 20.0 H INR 1.67 H Sodium Potassium Chloride Carbon Dioxide Anion Gap BUN Creatinine Estimated GFR BUN/Creatinine Ratio Glucose Hemoglobin A1c Calcium Total Bilirubin AST ALT Alkaline Phosphatase Total Protein Albumin Albumin/Globulin Ratio Assessment and Plan Patient seen and examined. I have reviewed the advanced practitioner's evaluation, assessment, and plan, and agree with them. I note the following additions: Patient family is determining whether they would like to proceed with PEG; please call us back if the family would like to proceed with the PEG Will need to hold Eliquis for 48 hours prior to placement
[2019-07-27 14:42] LABS: INR 1.67 (0.87-1.13)
--- NOTE | 2019-07-27 16:02 | Progress Note ---
Assessment and Plan Assessment and plan: Acute metabolic encephalopathy Sec to EDILMA and dehydration , hypernatremia Hypernatremia Improving Cont IV D5w for now Acute kidney injury) due to vasomotor nephropathy IV Fluids for now C/w ATN Monitor creatinine Breast cancer Fungating mass on left F/u with Dr Carreon as outpatient HTN (hypertension) On Catapress patch Poor fluid intake GI consulted for poss PEG Malnutrition Dietitian consult DVT prophylaxis On Eliquis History Interval history: Altered mental status Hospitalist Physical - Physical exam Narrative exam: Gen: Not in acute distress, lying in bed HEENT: Normocephalic, atraumatic Neck: supple, no JVD Heart: S1 and S2 reg, no murmurs, rubs or gallop Lungs: Clear to auscultation, no wheezing Breast:Left breast mass Abd: soft, non tender , non distended, normal BS Ext: No edema, no clubbing, no cyanosis Neuro: Awake,altered mental status - Constitutional Vitals: Temp Pulse Resp BP Pulse Ox 98.4 F 90 20 153/65 100 07/27/19 13:14 07/27/19 13:14 07/27/19 13:14 07/27/19 13:14 07/27/19 13:14 General appearance: Present: no acute distress Results - Labs CBC & Chem 7: 07/27/19 07:29 07/27/19 03:18 Labs: Laboratory Last Values WBC 11.6 K/mm3 (4.5-11.0) H 07/27/19 07:29 RBC 3.65 M/mm3 (3.65-5.03) 07/27/19 07:29 Hgb 8.8 gm/dl (10.1-14.3) L 07/27/19 07:29 Hct 28.1 % (30.3-42.9) L 07/27/19 07:29 MCV 77 fl (79-97) L 07/27/19 07:29 MCH 24 pg (28-32) L 07/27/19 07:29 MCHC 31 % (30-34) 07/27/19 07:29 RDW 22.1 % (13.2-15.2) H 07/27/19 07:29 Plt Count 321 K/mm3 (140-440) 07/27/19 07:29 Lymph % (Auto) 9.3 % (13.4-35.0) L 07/27/19 07:29 [place] % (Auto) 6.8 % (0.0-7.3) 07/27/19 07:29 Eos % (Auto) 0.2 % (0.0-4.3) 07/27/19 07:29 Baso % (Auto) 0.3 % (0.0-1.8) 07/27/19 07:29 Lymph # 1.1 K/mm3 (1.2-5.4) L 07/27/19 07:29 [place] # 0.8 K/mm3 (0.0-0.8) 07/27/19 07: Eos # 0.0 K/mm3 (0.0-0.4) 07/27/19 07: Baso # 0.0 K/mm3 (0.0-0.1) 07/27/19 07:29 Add Manual Diff Complete 07/26/19 10:51 Total Counted 100 07/26/19 10:51 Seg Neutrophils % 83.4 % (40.0-70.0) H 07/27/19 07:29 Seg Neuts % (Manual) 96.0 % (40.0-70.0) H 07/26/19 10:51 Band Neutrophils % 0 % 07/26/19 10:51 Lymphocytes % (Manual) 4.0 % (13.4-35.0) L 07/26/19 10:51 Reactive Lymphs % (Man) 0 % 07/26/19 10:51 Monocytes % (Manual) 0 % (0.0-7.3) 07/26/19 10:51 Eosinophils % (Manual) 0 % (0.0-4.3) 07/26/19 10:51 Basophils % (Manual) 0 % (0.0-1.8) 07/26/19 10:51 Metamyelocytes % 0 % 07/26/19 10:51 Myelocytes % 0 % 07/26/19 10:51 Promyelocytes % 0 % 07/26/19 10:51 Blast Cells % 0 % 07/26/19 10:51 Nucleated RBC % Not Reportable 07/26/19 10:51 Seg Neutrophils # 9.6 K/mm3 (1.8-7.7) H 07/27/19 07:29 Seg Neutrophils # Man 9.6 K/mm3 (1.8-7.7) H 07/26/19 10:51 Band Neutrophils # 0.0 K/mm3 07/26/19 10:51 Lymphocytes # (Manual) 0.4 K/mm3 (1.2-5.4) L 07/26/19 10:51 Abs React Lymphs (Man) 0.0 K/mm3 07/26/19 10:51 Monocytes # (Manual) 0.0 K/mm3 (0.0-0.8) 07/26/19 10:51 Eosinophils # (Manual) 0.0 K/mm3 (0.0-0.4) 07/26/19 10:51 Basophils # (Manual) 0.0 K/mm3 (0.0-0.1) 07/26/19 10:51 Metamyelocytes # 0.0 K/mm3 07/26/19 10:51 Myelocytes # 0.0 K/mm3 07/26/19 10:51 Promyelocytes # 0.0 K/mm3 07/26/19 10:51 Blast Cells # 0.0 K/mm3 07/26/19 10:51 WBC Morphology Not Reportable 07/26/19 10:51 Hypersegmented Neuts Not Reportable 07/26/19 10:51 Hyposegmented Neuts Not Reportable 07/26/19 10:51 Hypogranular Neuts Not Reportable 07/26/19 10:51 Smudge Cells Not Reportable 07/26/19 10:51 Toxic Granulation Not Reportable 07/26/19 10:51 Toxic Vacuolation Not Reportable 07/26/19 10:51 Dohle Bodies Not Reportable 07/26/19 10:51 Pelger-Huet Anomaly Not Reportable 07/26/19 10:51 David Rods Not Reportable 07/26/19 10:51 Platelet Estimate Consistent w auto 07/26/19 10:51 Clumped Platelets Not Reportable 07/26/19 10:51 Plt Clumps, EDTA Not Reportable 07/26/19 10:51 Large Platelets Few 07/26/19 10:51 Giant Platelets Not Reportable 07/26/19 10:51 Platelet Satelliting Not Reportable 07/26/19 10:51 Plt Morphology Comment Not Reportable 07/26/19 10:51 RBC Morphology Not Reportable 07/26/19 10:51 Dimorphic RBCs Not Reportable 07/26/19 10:51 Polychromasia Few 07/26/19 10:51 Hypochromasia Few 07/26/19 10:51 Poikilocytosis Not Reportable 07/26/19 10:51 Anisocytosis Not Reportable 07/26/19 10:51 Microcytosis Not Reportable 07/26/19 10:51 Macrocytosis Not Reportable 07/26/19 10:51 Spherocytes Few 07/26/19 10:51 Pappenheimer Bodies Not Reportable 07/26/19 10:51 Sickle Cells Not Reportable 07/26/19 10:51 Target Cells Few 07/26/19 10:51 Tear Drop Cells Not Reportable 07/26/19 10:51 Ovalocytes Not Reportable 07/26/19 10:51 Helmet Cells Not Reportable 07/26/19 10:51 [place] Bodies Not Reportable 07/26/19 10:51 Gaylord Rings Not Reportable 07/26/19 10:51 Bernarda Cells Not Reportable 07/26/19 10:51 Bite Cells Not Reportable 07/26/19 10:51 Crenated Cell Not Reportable 07/26/19 10:51 Elliptocytes Few 07/26/19 10:51 Acanthocytes (Spur) Not Reportable 07/26/19 10:51 Rouleaux Not Reportable 07/26/19 10:51 Hemoglobin C Crystals Not Reportable 07/26/19 10:51 Schistocytes Not Reportable 07/26/19 10:51 Malaria parasites Not Reportable 07/26/19 10:51 Eddie Bodies Not Reportable 07/26/19 10:51 Hem Pathologist Commnt No 07/26/19 10:51 PT 20.0 Sec. (12.2-14.9) H 07/27/19 14:06 INR 1.67 (0.87-1.13) H 07/27/19 14:06 Sodium 156 mmol/L (137-145) H D 07/27/19 03:18 Potassium 4.3 mmol/L (3.6-5.0) 07/27/19 03:18 Chloride 126.3 mmol/L (98-107) H 07/27/19 03:18 Carbon Dioxide 13 mmol/L (22-30) L 07/27/19 03:18 Anion Gap 21 mmol/L 07/27/19 03:18 BUN 75 mg/dL (7-17) H 07/27/19 03:18 Creatinine 1.7 mg/dL (0.7-1.2) H 07/27/19 03:18 Estimated GFR 35 ml/min 07/27/19 03:18 BUN/Creatinine Ratio 44 % 07/27/19 03:18 Glucose 269 mg/dL (65-100) H 07/27/19 03:18 POC Glucose 232 (70-105) H 07/26/19 10:45 Hemoglobin A1c 5.9 % (4-6) 07/27/19 07:29 Calcium 9.4 mg/dL (8.4-10.2) 07/27/19 03:18 Magnesium 2.90 mg/dL (1.7-2.3) H 07/26/19 10:51 Total Bilirubin 0.40 mg/dL (0.1-1.2) 07/27/19 03:18 AST 30 units/L (5-40) 07/27/19 03:18 ALT 13 units/L (7-56) 07/27/19 03:18 Alkaline Phosphatase 107 units/L (35-129) 07/27/19 03:18 Total Protein 7.2 g/dL (6.3-8.2) 07/27/19 03:18 Albumin 3.1 g/dL (3.9-5) L 07/27/19 03:18 Albumin/Globulin Ratio 0.8 % 07/27/19 03:18 Urine Color Yellow (Yellow) 07/26/19 12:53 Urine Turbidity Slightly-cloudy (Clear) 07/26/19 12:53 Urine pH 5.0 (5.0-7.0) 07/26/19 12:53 Ur Specific [place] 1.013 (1.003-1.030) 07/26/19 12:53 Urine Protein <15 mg/dl mg/dL (Negative) 07/26/19 12:53 Urine Glucose (UA) Neg mg/dL (Negative) 07/26/19 12:53 Urine Ketones Neg mg/dL (Negative) 07/26/19 12:53 Urine Blood Neg (Negative) 07/26/19 12:53 Urine Nitrite Neg (Negative) 07/26/19 12:53 Urine Bilirubin Neg (Negative) 07/26/19 12:53 Urine Urobilinogen < 2.0 mg/dL (<2.0) 07/26/19 12:53 Ur Leukocyte Esterase Neg (Negative) 07/26/19 12:53 Urine WBC (Auto) 3.0 /HPF (0.0-6.0) 07/26/19 12:53 Urine RBC (Auto) 7.0 /HPF (0.0-6.0) 07/26/19 12:53 U Epithel Cells (Auto) < 1.0 /HPF (0-13.0) 07/26/19 12:53 Urine Bacteria (Auto) 1+ /HPF (Negative) 07/26/19 12:53 Hyaline Casts 1 /LPF 07/26/19 12:53 Urine Mucus Few /HPF 07/26/19 12:53 Active Medications - Current Medications Current Medications: Generic Name Dose Route Start Last Admin Trade Name Freq PRN Reason Stop Dose Admin Acetaminophen 650 mg 07/26/19 16:31 Tylenol PO Q4H PRN Pain MILD(1-3)/Fever >100.5/PAYAN Apixaban 5 mg 07/27/19 01:45 07/27/19 09:39 Eliquis PO 5 mg BID TERI Administration Clonidine HCl 0.2 mg 07/27/19 10:00 07/27/19 09:35 Catapres-Tts Patch TD 0.2 mg Mo TERI Administration Famotidine 10 mg 07/27/19 10:00 07/27/19 09:38 Pepcid IV 10 mg BID TERI Administration Hydromorphone HCl 0.5 mg 07/26/19 16:31 Dilaudid IV Q3H PRN Pain , Severe (7-10) Dextrose/Sodium Chloride 1,000 mls @ 150 mls/hr 07/27/19 02:00 07/27/19 15:57 D5/0.45ns IV 150 mls/hr DIRECT TERI Administration Ondansetron HCl 4 mg 07/26/19 16:31 Zofran IV Q8H PRN Nausea And Vomiting Oxycodone/Acetaminophen 1 tab 07/26/19 16:31 Percocet 5/325 PO Q6H PRN Pain, Moderate (4-6) Sodium Chloride 10 ml 07/26/19 22:00 07/27/19 09:40 Sodium Chloride Flush Syringe 10 Ml IV 10 ml BID TERI Administration Sodium Chloride 10 ml 07/26/19 16:31 Sodium Chloride Flush Syringe 10 Ml IV PRN PRN LINE FLUSH Nutrition/Malnutrition Assess - Dietary Evaluation Nutrition/Malnutrition Findings: Nutrition Notes Start: 07/27/19 11:04 Freq: Status: Active Protocol: Document 07/27/19 11:04 LM (Rec: 07/27/19 11:26 LM [id number]) Nutrition Notes Need for Assessment generated from: bilingual sales consultant,MST Current Diagnosis Acute Kidney Injury, Hypertension,Respiratory Failure,Stroke Other Pertinent Diagnosis L breast mass/cancer, encephalopathy, dehydration Current Diet Clear liquid Labs/Tests Na 156 BUN 75 Cr 1.7 BG 269 HgbA1C 5.9 Pertinent Medications Reviewed Height 5 ft 2 in Weight 49.895 kg [place] Body Weight (kg) 50.00 BMI 20.1 Subjective/Other Information RN consult for MST. Pt nonverbal. RN feeding pt Ensure clear at time of visit, observed the rest of tray untouched. Per chart pt is from [place] and has not been meeting caloric/fluid needs and needs PEG. Burn Absent Trauma Absent GI Symptoms None Current % PO Poor (25-49%) Minimum of two criteria No physical signs of malnutrition #2 Nutrition Diagnosis Increased nutrient needs ( specify in comment below) Comments: protein Etiology wound healing As Evidenced by Signs and Symptoms L breast mass #1 Nutrition Diagnosis Inadequate oral intake Etiology recent CVA, breast cancer, advanced age As Evidenced by Signs and Symptoms pt not meeting caloric/fluid needs RESEARCH AIDE per chart, clear liquid diet, pt dehydrated Is patient on ventilator? No Is Patient Ambulatory and/or Out of Bed No REE-([facility]-confined to bed) 1084.200 Kcal/Kg value to use for calculation 32 Approximate Energy Requirements Using 1597 kcal/Kg Calculation Used for Recommendations Kcal/kg Additional Notes Protein: 40-75g (0.8-1.5g/kg) EDILMA and wound needs Fluid: 1 ml/kcal or per MD Nutrition Intervention Change Diet Order: TF or diet advancement when medically feasible Nutrition Support: Recommend Glucerna 1.2 at 50 ml/hr Flush 200 ml q4hr for hypernatremia Flush 100 ml q4hr once hypernatremia resolves Kcal 1,440 Protein (gm) 72 Fluid (mL) 966 Add Supplement/Snack (indicate name/kcal Ensure clear BID while on /protein ) clear liquid diet Provides kCal: 480 Provides Protein (gm) 16 Goal #1 Diet advancement and/or TF start when medically feasible Anticipated Discharge Needs: unable to determine at this time Follow-Up By: 07/30/19 Additional Comments F/U for POC
[2019-07-28] MEDS: D5W/0.45% NACL 1,000 ML IV SCH (05:30)
[2019-07-28 06:35] LABS: Hematocrit 23.9 % (30.3-42.9); Hemoglobin 7.6 gm/dl (10.1-14.3); Mean Corpuscular HGB Conc 32 % (30-34); Mean Corpuscular Volume 78 fl (79-97); Platelet Count 254 K/mm3 (140-440); Red Blood Count 3.07 M/mm3 (3.65-5.03)
[2019-07-28 06:56] LABS: Red Cell Distribution Width 21.7 % (13.2-15.2)
[2019-07-28 07:09] LABS: Calcium 8.8 mg/dL (8.4-10.2)
--- NOTE | 2019-07-28 08:18 | Gastroenterology Progress Note ---
Assessment and Plan Speech eval pending Patient family is determining whether they would like to proceed with PEG; please call me back if the family would like to proceed with the PEG Will need to hold Eliquis for 48 hours prior to placement - Patient Problems (1) Altered mental state Current Visit: Yes Status: Acute (2) Dehydration Current Visit: Yes Status: Acute (3) Malnutrition Current Visit: Yes Status: Chronic Qualifiers: Malnutrition type: protein-calorie malnutrition Protein-calorie malnutrition severity: moderate Qualified Code(s): E44.0 - Moderate protein- calorie malnutrition (4) Poor fluid intake Current Visit: Yes Status: Chronic Subjective Date of service: 07/28/19 Principal diagnosis: poor po intake Interval history: no family at bedside this AM Patient without complaint currently Objective - Constitutional Vitals: Temp Pulse Resp BP Pulse Ox 97.9 F 42 L 18 154/71 94 07/28/19 02:33 07/28/19 02:33 07/28/19 02:33 07/28/19 02:33 07/28/19 02:33 General appearance: no acute distress - Respiratory Respiratory effort: normal - Gastrointestinal General gastrointestinal: Present: soft, non-tender - Labs CBC & Chem 7: 07/28/19 05:37 07/28/19 05:37 Labs: Laboratory Results - last 24 hr 07/27/19 07/27/19 07/27/19 07:29 07:29 14:06 WBC 11.6 H RBC 3.65 Hgb 8.8 L Hct 28.1 L MCV 77 L MCH 24 L MCHC 31 RDW 22.1 H Plt Count 321 Lymph % (Auto) 9.3 L [place] % (Auto) 6.8 Eos % (Auto) 0.2 Baso % (Auto) 0.3 Lymph # 1.1 L [place] # 0.8 Eos # 0.0 Baso # 0.0 Seg Neutrophils % 83.4 H Seg Neutrophils # 9.6 H PT 20.0 H INR 1.67 H Sodium Potassium Chloride Carbon Dioxide Anion Gap BUN Creatinine Estimated GFR BUN/Creatinine Ratio Glucose Hemoglobin A1c 5.9 Calcium 07/28/19 07/28/19 05:37 05:37 WBC 7.2 RBC 3.07 L Hgb 7.6 L Hct 23.9 L MCV 78 L MCH 25 L MCHC 32 RDW 21.7 H Plt Count 254 Lymph % (Auto) [place] % (Auto) Eos % (Auto) Baso % (Auto) Lymph # [place] # Eos # Baso # Seg Neutrophils % Seg Neutrophils # PT INR Sodium 156 H Potassium 3.5 L Chloride 126.2 H Carbon Dioxide 15 L Anion Gap 18 BUN 41 H Creatinine 1.1 Estimated GFR 57 BUN/Creatinine Ratio 37 Glucose 185 H Hemoglobin A1c Calcium 8.8
[2019-07-28] MEDS: APIXABAN 5 MG TAB PO SCH ×2 (08:53→22:55)
[2019-07-28] MEDS: FAMOTIDINE 20 MG/2 ML INJ IV SCH ×2 (08:53→22:55)
--- NOTE | 2019-07-28 09:51 | Progress Note ---
Assessment and Plan # Hypernatremia: likely with decreased thirst mechanism and inability to drink free water in setting of stroke. start D5W with kcl and sodium bicarb Agree with GI consult for potential PEG tube placement to allow for free water replacement - daily labs # EDILMA: likely pre-renal and improving with IVF; defer further workup for now. Continue checo-protective measures including avoidance of nephrotoxins, renally dosing meds # Acidosis: likely in setting of EDILMA, # HTN: BP reasonable for age. Continue clonidine patch # Hypoalbuminemia: consistent with malnutrition; appreciate GI and dietary recs # Microcytic Anemia: Subjective Date of service: 07/28/19 Principal diagnosis: poor po intake Interval history: events noted Objective - Exam Narrative Exam: General appearance: no acute distress, chronically ill appearing Eyes: PERRL ENT: hearing intact Neck: supple, normal ROM Respiratory: bilateral CTA, left breast mass noted CV: RRR, S1/S2 Extremities: no ischemia, pulses intact, pulses symmetrical, No edema Peripheral Pulses: within normal limits Gastrointestinal: soft, non-tender, non-distended, normal bowel sounds Integumentary: Present: clear, warm, dry Musculoskeletal: gait normal, strength equal bilaterally Psychiatric: confused Neurologic: confused, unable to respond to commands, moves extremities spontaneously - Vital Signs Vital signs: Vital Signs - 12hr 07/28/19 07/28/19 02:33 07:47 Temperature 97.9 F 97.8 F Pulse Rate 42 L 98 H Respiratory 18 18 Rate Blood Pressure 154/71 149/48 O2 Sat by Pulse 94 100 Oximetry - Lab 07/28/19 05:37 07/28/19 05:37 Most recent lab results Calcium 8.8 mg/dL (8.4-10.2) 07/28/19 05:37 Magnesium 2.90 mg/dL (1.7-2.3) H 07/26/19 10:51 Medications & Allergies - Medications Allergies/Adverse Reactions: Allergies No Known Allergies Allergy (Unverified 07/26/19 11:37) Home Medications: Home Medications Medication Instructions Recorded Confirmed Last Taken Type Apixaban 5 mg PO BID 07/26/19 07/26/19 Unknown History Ascorbic Acid 500 mg PO DAILY 07/26/19 07/26/19 Unknown History Cholecalciferol Vit D3 1,000 units PO DAILY 07/26/19 07/26/19 Unknown History Colace ORAL LIQ 100 mg PO BID 07/26/19 07/26/19 Unknown History Duloxetine HCl 30 mg PO DAILY 07/26/19 07/26/19 Unknown History Ferrous Sulfate 325 mg PO DAILY 07/26/19 07/26/19 Unknown History Lipitor 40 mg PO QHS 07/26/19 07/26/19 Unknown History Lisinopril 20 mg PO DAILY 07/26/19 07/26/19 Unknown History Melatonin 3 mg PO QHS 07/26/19 07/26/19 Unknown History Miralax 17 gm PO DAILY 07/26/19 07/26/19 Unknown History Norvasc 5 mg PO DAILY 07/26/19 07/26/19 Unknown History Potassium 1 meq PO DAILY 07/26/19 07/26/19 Unknown History Zinc Sulfate 1 cap PO DAILY 07/26/19 07/26/19 Unknown History predniSONE 50 mg PO QHS 07/26/19 07/26/19 Unknown History Active Medications: Generic Name Dose Route Start Last Admin Trade Name Freq PRN Reason Stop Dose Admin Acetaminophen 650 mg 07/26/19 16:31 Tylenol PO Q4H PRN Pain MILD(1-3)/Fever >100.5/PAYAN Apixaban 5 mg 07/27/19 01:45 07/28/19 08:53 Eliquis PO 5 mg BID TERI Administration Clonidine HCl 0.2 mg 07/27/19 10:00 07/27/19 09:35 Catapres-Tts Patch TD 0.2 mg Mo TERI Administration Famotidine 10 mg 07/27/19 10:00 07/28/19 08:53 Pepcid IV 10 mg BID TERI Administration Hydromorphone HCl 0.5 mg 07/26/19 16:31 Dilaudid IV Q3H PRN Pain , Severe (7-10) Dextrose/Sodium Chloride 1,000 mls @ 150 mls/hr 07/27/19 02:00 07/28/19 05:30 D5/0.45ns IV 150 mls/hr DIRECT TERI Administration Ondansetron HCl 4 mg 07/26/19 16:31 Zofran IV Q8H PRN Nausea And Vomiting Oxycodone/Acetaminophen 1 tab 07/26/19 16:31 Percocet 5/325 PO Q6H PRN Pain, Moderate (4-6) Sodium Chloride 10 ml 07/26/19 22:00 07/28/19 08:54 Sodium Chloride Flush Syringe 10 Ml IV 10 ml BID TERI Administration Sodium Chloride 10 ml 07/26/19 16:31 Sodium Chloride Flush Syringe 10 Ml IV PRN PRN LINE FLUSH
--- NOTE | 2019-07-28 13:30 | Progress Note ---
Assessment and Plan Assessment and plan: Acute metabolic encephalopathy Sec to EDILMA and dehydration , hypernatremia Hypernatremia Improving Cont IV D5w for now Acute kidney injury) due to vasomotor nephropathy IV Fluids for now Monitor creatinine Breast cancer Fungating mass on left F/u with Dr Carreon as outpatient HTN (hypertension) On Catapress patch Poor fluid intake Awaiting family decision regarding PEG placement. Malnutrition Dietitian consult. As above. DVT prophylaxis On Eliquis History Interval history: No new issues overnight Hospitalist Physical - Constitutional Vitals: Temp Pulse Resp BP Pulse Ox 97.8 F 98 H 18 149/48 100 07/28/19 07:47 07/28/19 07:47 07/28/19 07:47 07/28/19 07:47 07/28/19 07:47 General appearance: Present: no acute distress - EENT Eyes: Present: PERRL, EOM intact ENT: hearing intact, clear oral mucosa, dentition normal - Neck Neck: Present: supple, normal ROM - Respiratory Respiratory effort: normal Respiratory: bilateral: CTA - Cardiovascular Rhythm: regular Heart Sounds: Present: S1 & S2. Absent: gallop, rub - Extremities Extremities: no ischemia, No edema, Full ROM - Abdominal General gastrointestinal: soft, non-tender, non-distended, normal bowel sounds - Integumentary Integumentary: Present: clear, warm, dry - Neurologic Neurologic: CNII-XII intact, moves all extremities Results - Labs CBC & Chem 7: 07/28/19 05:37 07/28/19 05:37 Labs: Laboratory Last Values WBC 7.2 K/mm3 (4.5-11.0) 07/28/19 05:37 RBC 3.07 M/mm3 (3.65-5.03) L 07/28/19 05:37 Hgb 7.6 gm/dl (10.1-14.3) L 07/28/19 05:37 Hct 23.9 % (30.3-42.9) L 07/28/19 05:37 MCV 78 fl (79-97) L 07/28/19 05:37 MCH 25 pg (28-32) L 07/28/19 05:37 MCHC 32 % (30-34) 07/28/19 05:37 RDW 21.7 % (13.2-15.2) H 07/28/19 05:37 Plt Count 254 K/mm3 (140-440) 07/28/19 05:37 Lymph % (Auto) 9.3 % (13.4-35.0) L 07/27/19 07:29 [place] % (Auto) 6.8 % (0.0-7.3) 07/27/19 07:29 Eos % (Auto) 0.2 % (0.0-4.3) 07/27/19 07:29 Baso % (Auto) 0.3 % (0.0-1.8) 07/27/19 07:29 Lymph # 1.1 K/mm3 (1.2-5.4) L 07/27/19 07:29 [place] # 0.8 K/mm3 (0.0-0.8) 07/27/19 07:29 Eos # 0.0 K/mm3 (0.0-0.4) 07/27/19 07:29 Baso # 0.0 K/mm3 (0.0-0.1) 07/27/19 07:29 Add Manual Diff Complete 07/26/19 10:51 Total Counted 100 07/26/19 10:51 Seg Neutrophils % 83.4 % (40.0-70.0) H 07/27/19 07:29 Seg Neuts % (Manual) 96.0 % (40.0-70.0) H 07/26/19 10:51 Band Neutrophils % 0 % 07/26/19 10:51 Lymphocytes % (Manual) 4.0 % (13.4-35.0) L 07/26/19 10:51 Reactive Lymphs % (Man) 0 % 07/26/19 10:51 Monocytes % (Manual) 0 % (0.0-7.3) 07/26/19 10:51 Eosinophils % (Manual) 0 % (0.0-4.3) 07/26/19 10:51 Basophils % (Manual) 0 % (0.0-1.8) 07/26/19 10:51 Metamyelocytes % 0 % 07/26/19 10:51 Myelocytes % 0 % 07/26/19 10:51 Promyelocytes % 0 % 07/26/19 10:51 Blast Cells % 0 % 07/26/19 10:51 Nucleated RBC % Not Reportable 07/26/19 10:51 Seg Neutrophils # 9.6 K/mm3 (1.8-7.7) H 07/27/19 07:29 Seg Neutrophils # Man 9.6 K/mm3 (1.8-7.7) H 07/26/19 10:51 Band Neutrophils # 0.0 K/mm3 07/26/19 10:51 Lymphocytes # (Manual) 0.4 K/mm3 (1.2-5.4) L 07/26/19 10:51 Abs React Lymphs (Man) 0.0 K/mm3 07/26/19 10:51 Monocytes # (Manual) 0.0 K/mm3 (0.0-0.8) 07/26/19 10:51 Eosinophils # (Manual) 0.0 K/mm3 (0.0-0.4) 07/26/19 10:51 Basophils # (Manual) 0.0 K/mm3 (0.0-0.1) 07/26/19 10:51 Metamyelocytes # 0.0 K/mm3 07/26/19 10:51 Myelocytes # 0.0 K/mm3 07/26/19 10:51 Promyelocytes # 0.0 K/mm3 07/26/19 10:51 Blast Cells # 0.0 K/mm3 07/26/19 10:51 WBC Morphology Not Reportable 07/26/19 10:51 Hypersegmented Neuts Not Reportable 07/26/19 10:51 Hyposegmented Neuts Not Reportable 07/26/19 10:51 Hypogranular Neuts Not Reportable 07/26/19 10:51 Smudge Cells Not Reportable 07/26/19 10:51 Toxic Granulation Not Reportable 07/26/19 10:51 Toxic Vacuolation Not Reportable 07/26/19 10:51 Dohle Bodies Not Reportable 07/26/19 10:51 Pelger-Huet Anomaly Not Reportable 07/26/19 10:51 David Rods Not Reportable 07/26/19 10:51 Platelet Estimate Consistent w auto 07/26/19 10:51 Clumped Platelets Not Reportable 07/26/19 10:51 Plt Clumps, EDTA Not Reportable 07/26/19 10:51 Large Platelets Few 07/26/19 10:51 Giant Platelets Not Reportable 07/26/19 10:51 Platelet Satelliting Not Reportable 07/26/19 10:51 Plt Morphology Comment Not Reportable 07/26/19 10:51 RBC Morphology Not Reportable 07/26/19 10:51 Dimorphic RBCs Not Reportable 07/26/19 10:51 Polychromasia Few 07/26/19 10:51 Hypochromasia Few 07/26/19 10:51 Poikilocytosis Not Reportable 07/26/19 10:51 Anisocytosis Not Reportable 07/26/19 10:51 Microcytosis Not Reportable 07/26/19 10:51 Macrocytosis Not Reportable 07/26/19 10:51 Spherocytes Few 07/26/19 10:51 Pappenheimer Bodies Not Reportable 07/26/19 10:51 Sickle Cells Not Reportable 07/26/19 10:51 Target Cells Few 07/26/19 10:51 Tear Drop Cells Not Reportable 07/26/19 10:51 Ovalocytes Not Reportable 07/26/19 10:51 Helmet Cells Not Reportable 07/26/19 10:51 De Oliveira-[place] Bodies Not Reportable 07/26/19 10:51 [place] Rings Not Reportable 07/26/19 10:51 [place] Cells Not Reportable 07/26/19 10:51 Bite Cells Not Reportable 07/26/19 10:51 Crenated Cell Not Reportable 07/26/19 10:51 Elliptocytes Few 07/26/19 10:51 Acanthocytes (Spur) Not Reportable 07/26/19 10:51 Rouleaux Not Reportable 07/26/19 10:51 Hemoglobin C Crystals Not Reportable 07/26/19 10:51 Schistocytes Not Reportable 07/26/19 10:51 Malaria parasites Not Reportable 07/26/19 10:51 Eddie Bodies Not Reportable 07/26/19 10:51 Hem Pathologist Commnt No 07/26/19 10:51 PT 20.0 Sec. (12.2-14.9) H 07/27/19 14:06 INR 1.67 (0.87-1.13) H 07/27/19 14:06 Sodium 156 mmol/L (137-145) H 07/28/19 05:37 Potassium 3.5 mmol/L (3.6-5.0) L 07/28/19 05:37 Chloride 126.2 mmol/L (98-107) H 07/28/19 05:37 Carbon Dioxide 15 mmol/L (22-30) L 07/28/19 05:37 Anion Gap 18 mmol/L 07/28/19 05:37 BUN 41 mg/dL (7-17) H 07/28/19 05:37 Creatinine 1.1 mg/dL (0.7-1.2) 07/28/19 05:37 Estimated GFR 57 ml/min 07/28/19 05:37 BUN/Creatinine Ratio 37 % 07/28/19 05:37 Glucose 185 mg/dL (65-100) H 07/28/19 05:37 POC Glucose 232 (70-105) H 07/26/19 10:45 Hemoglobin A1c 5.9 % (4-6) 07/27/19 07:29 Calcium 8.8 mg/dL (8.4-10.2) 07/28/19 05:37 Magnesium 2.90 mg/dL (1.7-2.3) H 07/26/19 10:51 Total Bilirubin 0.40 mg/dL (0.1-1.2) 07/27/19 03:18 AST 30 units/L (5-40) 07/27/19 03:18 ALT 13 units/L (7-56) 07/27/19 03:18 Alkaline Phosphatase 107 units/L (35-129) 07/27/19 03:18 Total Protein 7.2 g/dL (6.3-8.2) 07/27/19 03:18 Albumin 3.1 g/dL (3.9-5) L 07/27/19 03:18 Albumin/Globulin Ratio 0.8 % 07/27/19 03:18 Urine Color Yellow (Yellow) 07/26/19 12:53 Urine Turbidity Slightly-cloudy (Clear) 07/26/19 12:53 Urine pH 5.0 (5.0-7.0) 07/26/19 12:53 Ur Specific [place] 1.013 (1.003-1.030) 07/26/19 12:53 Urine Protein <15 mg/dl mg/dL (Negative) 07/26/19 12:53 Urine Glucose (UA) Neg mg/dL (Negative) 07/26/19 12:53 Urine Ketones Neg mg/dL (Negative) 07/26/19 12:53 Urine Blood Neg (Negative) 07/26/19 12:53 Urine Nitrite Neg (Negative) 07/26/19 12:53 Urine Bilirubin Neg (Negative) 07/26/19 12:53 Urine Urobilinogen < 2.0 mg/dL (<2.0) 07/26/19 12:53 Ur Leukocyte Esterase Neg (Negative) 07/26/19 12:53 Urine WBC (Auto) 3.0 /HPF (0.0-6.0) 07/26/19 12:53 Urine RBC (Auto) 7.0 /HPF (0.0-6.0) 07/26/19 12:53 U Epithel Cells (Auto) < 1.0 /HPF (0-13.0) 07/26/19 12:53 Urine Bacteria (Auto) 1+ /HPF (Negative) 07/26/19 12:53 Hyaline Casts 1 /LPF 07/26/19 12:53 Urine Mucus Few /HPF 07/26/19 12:53 Active Medications - Current Medications Current Medications: Generic Name Dose Route Start Last Admin Trade Name Freq PRN Reason Stop Dose Admin Acetaminophen 650 mg 07/26/19 16:31 Tylenol PO Q4H PRN Pain MILD(1-3)/Fever >100.5/PAYAN Apixaban 5 mg 07/27/19 01:45 07/28/19 08:53 Eliquis PO 5 mg BID TERI Administration Clonidine HCl 0.2 mg 07/27/19 10:00 07/27/19 09:35 Catapres-Tts Patch TD 0.2 mg Mo TERI Administration Famotidine 10 mg 07/27/19 10:00 07/28/19 08:53 Pepcid IV 10 mg BID TERI Administration Hydromorphone HCl 0.5 mg 07/26/19 16:31 Dilaudid IV Q3H PRN Pain , Severe (7-10) Potassium Chloride 20 meq/ 1,060 mls @ 150 mls/hr 07/28/19 09:45 Sodium Bicarbonate 50 meq/ IV Dextrose DIRECT TERI Ondansetron HCl 4 mg 07/26/19 16:31 Zofran IV Q8H PRN Nausea And Vomiting Oxycodone/Acetaminophen 1 tab 07/26/19 16:31 Percocet 5/325 PO Q6H PRN Pain, Moderate (4-6) Sodium Chloride 10 ml 07/26/19 22:00 07/28/19 08:54 Sodium Chloride Flush Syringe 10 Ml IV 10 ml BID TERI Administration Sodium Chloride 10 ml 07/26/19 16:31 Sodium Chloride Flush Syringe 10 Ml IV PRN PRN LINE FLUSH Nutrition/Malnutrition Assess - Dietary Evaluation Nutrition/Malnutrition Findings: Nutrition Notes Start: 07/27/19 11:04 Freq: Status: Active Protocol: Document 07/27/19 11:04 LM (Rec: 07/27/19 11:26 LM [id number]) Nutrition Notes 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 Pt nonverbal. RN feeding pt Ensure clear at time of visit, observed the rest of tray untouched. Per chart pt is from [place] and has not been meeting caloric/fluid needs and needs PEG. 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 No Is Patient Ambulatory and/or Out of Bed No REE-([facility]-confined to bed) 1084.200 Kcal/Kg value to use for calculation 32 Approximate Energy Requirements Using 1597 kcal/Kg Calculation Used for Recommendations Kcal/kg Additional Notes Protein: 40-75g (0.8-1.5g/kg) EDILMA and wound needs Fluid: 1 ml/kcal or per MD Nutrition Intervention Change Diet Order: TF or diet advancement when medically feasible Nutrition Support: Recommend Glucerna 1.2 at 50 ml/hr Flush 200 ml q4hr for hypernatremia Flush 100 ml q4hr once hypernatremia resolves Kcal 1,440 Protein (gm) 72 Fluid (mL) 966 Add Supplement/Snack (indicate name/kcal Ensure clear BID while on /protein ) clear liquid diet Provides kCal: 480 Provides Protein (gm) 16 Goal #1 Diet advancement and/or TF start when medically feasible Anticipated Discharge Needs: unable to determine at this time Follow-Up By: 07/30/19 Additional Comments F/U for POC
[2019-07-28] MEDS ORDERED: NEOMY 3.5 MG/BACIT 400 UNITS/POLY B 5000 UNITS/GM OINT PACKET TP ONE (14:34)
[2019-07-28] MEDS: SODIUM BICARBONATE IV SCH (21:30)
[2019-07-28] MEDS: DEXTROSE 5% IV SCH (21:30)
[2019-07-28] MEDS: POTASSIUM CHLORIDE IV SCH (21:30)
[2019-07-28] MEDS: WATER IV SCH (21:30)
[2019-07-29] MEDS: FAMOTIDINE 20 MG/2 ML INJ IV SCH ×3 (00:04→23:08)
[2019-07-29] MEDS: APIXABAN 5 MG TAB PO SCH ×3 (00:04→23:08)
[2019-07-29] MEDS: DEXTROSE 5% IV SCH (03:49)
[2019-07-29] MEDS: POTASSIUM CHLORIDE IV SCH (03:49)
[2019-07-29] MEDS: WATER IV SCH (03:49)
[2019-07-29] MEDS: SODIUM BICARBONATE IV SCH (03:49)
[2019-07-29 05:51] LABS: Basophils % (Auto) 0.1 % (0.0-1.8); Eosinophils # (Auto) 0.1 K/mm3 (0.0-0.4); Eosinophils % (Auto) 1.5 % (0.0-4.3); Hematocrit 26.1 % (30.3-42.9); Hemoglobin 8.4 gm/dl (10.1-14.3); Lymphocytes # (Auto) 0.8 K/mm3 (1.2-5.4); Lymphocytes % (Auto) 13.3 % (13.4-35.0); Mean Corpuscular HGB Conc 32 % (30-34); Mean Corpuscular Volume 77 fl (79-97); Monocytes # (Auto) 0.4 K/mm3 (0.0-0.8); Monocytes % (Auto) 6.3 % (0.0-7.3); Platelet Count 255 K/mm3 (140-440)
[2019-07-29 06:16] LABS: BUN/Creatinine Ratio 24; Blood Urea Nitrogen 24 mg/dL (7-17); Calcium 8.6 mg/dL (8.4-10.2); Hemolysis Index 4
[2019-07-29 06:31] LABS: Red Cell Distribution Width 21.1 % (13.2-15.2)
--- NOTE | 2019-07-29 10:09 | Progress Note ---
Assessment and Plan # Hypernatremia: likely with decreased thirst mechanism and inability to drink free water in setting of stroke. GI consult for potential PEG tube placement to allow for free water replacement - daily labs -Na is better, cr improved, d5 1/2 ns with kcl follow up k levels and replete prn # EDILMA: likely pre-renal and improving with IVF; defer further workup for now. Continue checo-protective measures including avoidance of nephrotoxins, renally dosing meds # Acidosis: likely in setting of EDILMA, # HTN: BP reasonable for age. Continue clonidine patch # Hypoalbuminemia: consistent with malnutrition; appreciate GI and dietary recs # Microcytic Anemia: Subjective Date of service: 07/29/19 Principal diagnosis: poor po intake Interval history: events noted Objective - Exam Narrative Exam: General appearance: no acute distress, chronically ill appearing Eyes: PERRL ENT: hearing intact Neck: supple, normal ROM Respiratory: bilateral CTA, left breast mass noted CV: RRR, S1/S2 Extremities: no ischemia, pulses intact, pulses symmetrical, No edema Peripheral Pulses: within normal limits Gastrointestinal: soft, non-tender, non-distended, normal bowel sounds Integumentary: Present: clear, warm, dry Musculoskeletal: gait normal, strength equal bilaterally Psychiatric: confused Neurologic: confused, unable to respond to commands, moves extremities spontaneously - Vital Signs Vital signs: Vital Signs - 12hr 07/29/19 07/29/19 07/29/19 02:12 05:00 07:52 Temperature 98.2 F 97.8 F Pulse Rate 109 H 87 Respiratory 18 20 18 Rate Blood Pressure 152/78 167/74 O2 Sat by Pulse 100 100 Oximetry - Lab 07/29/19 05:24 07/29/19 05:24 Most recent lab results Calcium 8.6 mg/dL (8.4-10.2) 07/29/19 05:24 Magnesium 2.90 mg/dL (1.7-2.3) H 07/26/19 10:51 Medications & Allergies - Medications Allergies/Adverse Reactions: Allergies No Known Allergies Allergy (Unverified 07/26/19 11:37) Home Medications: Home Medications Medication Instructions Recorded Confirmed Last Taken Type Apixaban 5 mg PO BID 07/26/19 07/26/19 Unknown History Ascorbic Acid 500 mg PO DAILY 07/26/19 07/26/19 Unknown History Cholecalciferol Vit D3 1,000 units PO DAILY 07/26/19 07/26/19 Unknown History Colace ORAL LIQ 100 mg PO BID 07/26/19 07/26/19 Unknown History Duloxetine HCl 30 mg PO DAILY 07/26/19 07/26/19 Unknown History Ferrous Sulfate 325 mg PO DAILY 07/26/19 07/26/19 Unknown History Lipitor 40 mg PO QHS 07/26/19 07/26/19 Unknown History Lisinopril 20 mg PO DAILY 07/26/19 07/26/19 Unknown History Melatonin 3 mg PO QHS 07/26/19 07/26/19 Unknown History Miralax 17 gm PO DAILY 07/26/19 07/26/19 Unknown History Norvasc 5 mg PO DAILY 07/26/19 07/26/19 Unknown History Potassium 1 meq PO DAILY 07/26/19 07/26/19 Unknown History Zinc Sulfate 1 cap PO DAILY 07/26/19 07/26/19 Unknown History predniSONE 50 mg PO QHS 07/26/19 07/26/19 Unknown History Active Medications: Generic Name Dose Route Start Last Admin Trade Name Freq PRN Reason Stop Dose Admin Acetaminophen 650 mg 07/26/19 16:31 Tylenol PO Q4H PRN Pain MILD(1-3)/Fever >100.5/PAYAN Apixaban 5 mg 07/27/19 01:45 07/29/19 00:04 Eliquis PO Not Given BID TERI Clonidine HCl 0.2 mg 07/27/19 10:00 07/27/19 09:35 Catapres-Tts Patch TD 0.2 mg Mo TERI Administration Famotidine 10 mg 07/27/19 10:00 07/29/19 00:04 Pepcid IV Not Given BID TERI Hydromorphone HCl 0.5 mg 07/26/19 16:31 Dilaudid IV Q3H PRN Pain , Severe (7-10) Potassium Chloride/Dextrose/Sod Cl 30 meq in 1,000 mls @ 100 mls/hr 07/29/19 11:00 D5w/0.45% Nacl/Kcl 30 Meq IV DIRECT TERI Ondansetron HCl 4 mg 07/26/19 16:31 Zofran IV Q8H PRN Nausea And Vomiting Oxycodone/Acetaminophen 1 tab 07/26/19 16:31 Percocet 5/325 PO Q6H PRN Pain, Moderate (4-6) Sodium Chloride 10 ml 07/26/19 22:00 07/29/19 00:04 Sodium Chloride Flush Syringe 10 Ml IV Not Given BID TERI Sodium Chloride 10 ml 07/26/19 16:31 Sodium Chloride Flush Syringe 10 Ml IV PRN PRN LINE FLUSH
--- NOTE | 2019-07-29 10:37 | Progress Note ---
Assessment and Plan Assessment and plan: Acute metabolic encephalopathy Sec to EDILMA and dehydration , hypernatremia Hypernatremia Improving Cont IV D5w for now Acute kidney injury) due to vasomotor nephropathy IV Fluids for now Monitor creatinine Breast cancer Fungating mass on left F/u with Dr Carreon as outpatient HTN (hypertension) On Catapress patch Poor fluid intake Awaiting family decision regarding PEG placement. Malnutrition Dietitian consult. As above. DVT prophylaxis On Eliquis History Interval history: No new issues overnight Hospitalist Physical - Constitutional Vitals: Temp Pulse Resp BP Pulse Ox 97.8 F 87 18 167/74 100 07/29/19 07:52 07/29/19 07:52 07/29/19 07:52 07/29/19 07:52 07/29/19 07:52 General appearance: Present: no acute distress - EENT Eyes: Present: PERRL, EOM intact ENT: hearing intact, clear oral mucosa, dentition normal - Neck Neck: Present: supple, normal ROM - Respiratory Respiratory effort: normal Respiratory: bilateral: CTA - Cardiovascular Rhythm: regular Heart Sounds: Present: S1 & S2. Absent: gallop, rub - Extremities Extremities: no ischemia, No edema, Full ROM - Abdominal General gastrointestinal: soft, non-tender, non-distended, normal bowel sounds - Integumentary Integumentary: Present: clear, warm, dry - Neurologic Neurologic: CNII-XII intact, moves all extremities Results - Labs CBC & Chem 7: 07/29/19 05:24 07/29/19 05:24 Labs: Laboratory Last Values WBC 6.1 K/mm3 (4.5-11.0) 07/29/19 05:24 RBC 3.40 M/mm3 (3.65-5.03) L 07/29/19 05:24 Hgb 8.4 gm/dl (10.1-14.3) L 07/29/19 05:24 Hct 26.1 % (30.3-42.9) L 07/29/19 05:24 MCV 77 fl (79-97) L 07/29/19 05:24 MCH 25 pg (28-32) L 07/29/19 05:24 MCHC 32 % (30-34) 07/29/19 05:24 RDW 21.1 % (13.2-15.2) H 07/29/19 05:24 Plt Count 255 K/mm3 (140-440) 07/29/19 05:24 Lymph % (Auto) 13.3 % (13.4-35.0) L 07/29/19 05:24 [place] % (Auto) 6.3 % (0.0-7.3) 07/29/19 05:24 Eos % (Auto) 1.5 % (0.0-4.3) 07/29/19 05:24 Baso % (Auto) 0.1 % (0.0-1.8) 07/29/19 05:24 Lymph # 0.8 K/mm3 (1.2-5.4) L 07/29/19 05:24 [place] # 0.4 K/mm3 (0.0-0.8) 07/29/19 05:24 Eos # 0.1 K/mm3 (0.0-0.4) 07/29/19 05:24 Baso # 0.0 K/mm3 (0.0-0.1) 07/29/19 05:24 Add Manual Diff Complete 07/26/19 10:51 Total Counted 100 07/26/19 10:51 Seg Neutrophils % 78.8 % (40.0-70.0) H 07/29/19 05:24 Seg Neuts % (Manual) 96.0 % (40.0-70.0) H 07/26/19 10:51 Band Neutrophils % 0 % 07/26/19 10:51 Lymphocytes % (Manual) 4.0 % (13.4-35.0) L 07/26/19 10:51 Reactive Lymphs % (Man) 0 % 07/26/19 10:51 Monocytes % (Manual) 0 % (0.0-7.3) 07/26/19 10:51 Eosinophils % (Manual) 0 % (0.0-4.3) 07/26/19 10:51 Basophils % (Manual) 0 % (0.0-1.8) 07/26/19 10:51 Metamyelocytes % 0 % 07/26/19 10:51 Myelocytes % 0 % 07/26/19 10:51 Promyelocytes % 0 % 07/26/19 10:51 Blast Cells % 0 % 07/26/19 10:51 Nucleated RBC % Not Reportable 07/26/19 10:51 Seg Neutrophils # 4.8 K/mm3 (1.8-7.7) 07/29/19 05:24 Seg Neutrophils # Man 9.6 K/mm3 (1.8-7.7) H 07/26/19 10:51 Band Neutrophils # 0.0 K/mm3 07/26/19 10:51 Lymphocytes # (Manual) 0.4 K/mm3 (1.2-5.4) L 07/26/19 10:51 Abs React Lymphs (Man) 0.0 K/mm3 07/26/19 10:51 Monocytes # (Manual) 0.0 K/mm3 (0.0-0.8) 07/26/19 10:51 Eosinophils # (Manual) 0.0 K/mm3 (0.0-0.4) 07/26/19 10:51 Basophils # (Manual) 0.0 K/mm3 (0.0-0.1) 07/26/19 10:51 Metamyelocytes # 0.0 K/mm3 07/26/19 10:51 Myelocytes # 0.0 K/mm3 07/26/19 10:51 Promyelocytes # 0.0 K/mm3 07/26/19 10:51 Blast Cells # 0.0 K/mm3 07/26/19 10:51 WBC Morphology Not Reportable 07/26/19 10:51 Hypersegmented Neuts Not Reportable 07/26/19 10:51 Hyposegmented Neuts Not Reportable 07/26/19 10:51 Hypogranular Neuts Not Reportable 07/26/19 10:51 Smudge Cells Not Reportable 07/26/19 10:51 Toxic Granulation Not Reportable 07/26/19 10:51 Toxic Vacuolation Not Reportable 07/26/19 10:51 Dohle Bodies Not Reportable 07/26/19 10:51 Pelger-Huet Anomaly Not Reportable 07/26/19 10:51 David Rods Not Reportable 07/26/19 10:51 Platelet Estimate Consistent w auto 07/26/19 10:51 Clumped Platelets Not Reportable 07/26/19 10:51 Plt Clumps, EDTA Not Reportable 07/26/19 10:51 Large Platelets Few 07/26/19 10:51 Giant Platelets Not Reportable 07/26/19 10:51 Platelet Satelliting Not Reportable 07/26/19 10:51 Plt Morphology Comment Not Reportable 07/26/19 10:51 RBC Morphology Not Reportable 07/26/19 10:51 Dimorphic RBCs Not Reportable 07/26/19 10:51 Polychromasia Few 07/26/19 10:51 Hypochromasia Few 07/26/19 10:51 Poikilocytosis Not Reportable 07/26/19 10:51 Anisocytosis Not Reportable 07/26/19 10:51 Microcytosis Not Reportable 07/26/19 10:51 Macrocytosis Not Reportable 07/26/19 10:51 Spherocytes Few 07/26/19 10:51 Pappenheimer Bodies Not Reportable 07/26/19 10:51 Sickle Cells Not Reportable 07/26/19 10:51 Target Cells Few 07/26/19 10:51 Tear Drop Cells Not Reportable 07/26/19 10:51 Ovalocytes Not Reportable 07/26/19 10:51 Helmet Cells Not Reportable 07/26/19 10:51 De Oliveira-Belcourt Bodies Not Reportable 07/26/19 10:51 [place] Rings Not Reportable 07/26/19 10:51 [place] Cells Not Reportable 07/26/19 10:51 Bite Cells Not Reportable 07/26/19 10:51 Crenated Cell Not Reportable 07/26/19 10:51 Elliptocytes Few 07/26/19 10:51 Acanthocytes (Spur) Not Reportable 07/26/19 10:51 Rouleaux Not Reportable 07/26/19 10:51 Hemoglobin C Crystals Not Reportable 07/26/19 10:51 Schistocytes Not Reportable 07/26/19 10:51 Malaria parasites Not Reportable 07/26/19 10:51 Eddie Bodies Not Reportable 07/26/19 10:51 Hem Pathologist Commnt No 07/26/19 10:51 PT 20.0 Sec. (12.2-14.9) H 07/27/19 14:06 INR 1.67 (0.87-1.13) H 07/27/19 14:06 Sodium 147 mmol/L (137-145) H D 07/29/19 05:24 Potassium 3.1 mmol/L (3.6-5.0) L 07/29/19 05:24 Chloride 114.2 mmol/L (98-107) H 07/29/19 05:24 Carbon Dioxide 19 mmol/L (22-30) L 07/29/19 05:24 Anion Gap 17 mmol/L 07/29/19 05:24 BUN 24 mg/dL (7-17) H 07/29/19 05:24 Creatinine 1.0 mg/dL (0.7-1.2) 07/29/19 05:24 Estimated GFR > 60 ml/min 07/29/19 05:24 BUN/Creatinine Ratio 24 % 07/29/19 05:24 Glucose 169 mg/dL (65-100) H 07/29/19 05:24 POC Glucose 232 (70-105) H 07/26/19 10:45 Hemoglobin A1c 5.9 % (4-6) 07/27/19 07:29 Calcium 8.6 mg/dL (8.4-10.2) 07/29/19 05:24 Magnesium 2.90 mg/dL (1.7-2.3) H 07/26/19 10:51 Total Bilirubin 0.40 mg/dL (0.1-1.2) 07/27/19 03:18 AST 30 units/L (5-40) 07/27/19 03:18 ALT 13 units/L (7-56) 07/27/19 03:18 Alkaline Phosphatase 107 units/L (35-129) 07/27/19 03:18 Total Protein 7.2 g/dL (6.3-8.2) 07/27/19 03:18 Albumin 3.1 g/dL (3.9-5) L 07/27/19 03:18 Albumin/Globulin Ratio 0.8 % 07/27/19 03:18 Urine Color Yellow (Yellow) 07/26/19 12:53 Urine Turbidity Slightly-cloudy (Clear) 07/26/19 12:53 Urine pH 5.0 (5.0-7.0) 07/26/19 12:53 Ur Specific [place] 1.013 (1.003-1.030) 07/26/19 12:53 Urine Protein <15 mg/dl mg/dL (Negative) 07/26/19 12:53 Urine Glucose (UA) Neg mg/dL (Negative) 07/26/19 12:53 Urine Ketones Neg mg/dL (Negative) 07/26/19 12:53 Urine Blood Neg (Negative) 07/26/19 12:53 Urine Nitrite Neg (Negative) 07/26/19 12:53 Urine Bilirubin Neg (Negative) 07/26/19 12:53 Urine Urobilinogen < 2.0 mg/dL (<2.0) 07/26/19 12:53 Ur Leukocyte Esterase Neg (Negative) 07/26/19 12:53 Urine WBC (Auto) 3.0 /HPF (0.0-6.0) 07/26/19 12:53 Urine RBC (Auto) 7.0 /HPF (0.0-6.0) 07/26/19 12:53 U Epithel Cells (Auto) < 1.0 /HPF (0-13.0) 07/26/19 12:53 Urine Bacteria (Auto) 1+ /HPF (Negative) 07/26/19 12:53 Hyaline Casts 1 /LPF 07/26/19 12:53 Urine Mucus Few /HPF 07/26/19 12:53 Active Medications - Current Medications Current Medications: Generic Name Dose Route Start Last Admin Trade Name Freq PRN Reason Stop Dose Admin Acetaminophen 650 mg 07/26/19 16:31 Tylenol PO Q4H PRN Pain MILD(1-3)/Fever >100.5/PAYAN Apixaban 5 mg 07/27/19 01:45 07/29/19 00:04 Eliquis PO Not Given BID TERI Clonidine HCl 0.2 mg 07/27/19 10:00 07/27/19 09:35 Catapres-Tts Patch TD 0.2 mg Mo TERI Administration Famotidine 10 mg 07/27/19 10:00 07/29/19 00:04 Pepcid IV Not Given BID TERI Hydromorphone HCl 0.5 mg 07/26/19 16:31 Dilaudid IV Q3H PRN Pain , Severe (7-10) Potassium Chloride/Dextrose/Sod Cl 30 meq in 1,000 mls @ 100 mls/hr 07/29/19 11:00 D5w/0.45% Nacl/Kcl 30 Meq IV DIRECT TERI Ondansetron HCl 4 mg 07/26/19 16:31 Zofran IV Q8H PRN Nausea And Vomiting Oxycodone/Acetaminophen 1 tab 07/26/19 16:31 Percocet 5/325 PO Q6H PRN Pain, Moderate (4-6) Sodium Chloride 10 ml 07/26/19 22:00 07/29/19 00:04 Sodium Chloride Flush Syringe 10 Ml IV Not Given BID TERI Sodium Chloride 10 ml 07/26/19 16:31 Sodium Chloride Flush Syringe 10 Ml IV PRN PRN LINE FLUSH Nutrition/Malnutrition Assess - Dietary Evaluation Nutrition/Malnutrition Findings: Nutrition Notes Start: 07/27/19 11:04 Freq: Status: Active Protocol: Document 07/27/19 11:04 LM (Rec: 07/27/19 11:26 LM [id number]) Nutrition Notes Need for Assessment generated from: spinner box,MST Current Diagnosis Acute Kidney Injury, Hypertension,Respiratory Failure,Stroke Other Pertinent Diagnosis L breast mass/cancer, encephalopathy, dehydration Current Diet Clear liquid Labs/Tests Na 156 BUN 75 Cr 1.7 BG 269 HgbA1C 5.9 Pertinent Medications Reviewed Height 5 ft 2 in Weight 49.895 kg [place] Body Weight (kg) 50.00 BMI 20.1 Subjective/Other Information RN consult for MST. Pt nonverbal. RN feeding pt Ensure clear at time of visit, observed the rest of tray untouched. Per chart pt is from [place] and has not been meeting caloric/fluid needs and needs PEG. 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 No Is Patient Ambulatory and/or Out of Bed No REE-([facility] [place]-confined to bed) 1084.200 Kcal/Kg value to use for calculation 32 Approximate Energy Requirements Using 1597 kcal/Kg Calculation Used for Recommendations Kcal/kg Additional Notes Protein: 40-75g (0.8-1.5g/kg) EDILMA and wound needs Fluid: 1 ml/kcal or per MD Nutrition Intervention Change Diet Order: TF or diet advancement when medically feasible Nutrition Support: Recommend Glucerna 1.2 at 50 ml/hr Flush 200 ml q4hr for hypernatremia Flush 100 ml q4hr once hypernatremia resolves Kcal 1,440 Protein (gm) 72 Fluid (mL) 966 Add Supplement/Snack (indicate name/kcal Ensure clear BID while on /protein ) clear liquid diet Provides kCal: 480 Provides Protein (gm) 16 Goal #1 Diet advancement and/or TF start when medically feasible Anticipated Discharge Needs: unable to determine at this time Follow-Up By: 07/30/19 Additional Comments F/U for POC
[2019-07-29] MEDS: D5W/0.45% NACL/KCL 30 MEQ 30 MEQ/1,000 ML BAG IV SCH (23:07)
[2019-07-30 06:47] LABS: Basophils % (Auto) 0.2 % (0.0-1.8); Eosinophils # (Auto) 0.1 K/mm3 (0.0-0.4); Hematocrit 24.8 % (30.3-42.9); Hemoglobin 8.2 gm/dl (10.1-14.3); Lymphocytes % (Auto) 16.3 % (13.4-35.0); Mean Corpuscular HGB Conc 33 % (30-34); Mean Corpuscular Volume 75 fl (79-97); Monocytes # (Auto) 0.4 K/mm3 (0.0-0.8); Monocytes % (Auto) 6.5 % (0.0-7.3); Platelet Count 228 K/mm3 (140-440); Red Blood Count 3.32 M/mm3 (3.65-5.03)
[2019-07-30 07:07] LABS: BUN/Creatinine Ratio 21; Blood Urea Nitrogen 17 mg/dL (7-17); Calcium 8.2 mg/dL (8.4-10.2); Hemolysis Index 4
[2019-07-30] MEDS: APIXABAN 5 MG TAB PO SCH ×2 (09:36→23:52)
[2019-07-30] MEDS: FAMOTIDINE 20 MG/2 ML INJ IV SCH ×2 (09:36→23:52)
[2019-07-30] MEDS: D5W/0.45% NACL/KCL 30 MEQ 30 MEQ/1,000 ML BAG IV SCH (09:38)
--- NOTE | 2019-07-30 11:46 | Progress Note ---
Assessment and Plan Assessment and plan: Acute metabolic encephalopathy Sec to EDILMA and dehydration , hypernatremia Hypernatremia Improving Cont IV D5w for now Acute kidney injury) due to vasomotor nephropathy IV Fluids for now Monitor creatinine Breast cancer Fungating mass on left F/u with Dr Carreon as outpatient HTN (hypertension) On Catapress patch Poor fluid intake Awaiting family decision regarding PEG placement. I discussed with the son at [phone] and he informed me he would have a decision later today. Malnutrition Dietitian consult. As above. DVT prophylaxis On Eliquis History Interval history: No new issues overnight Hospitalist Physical - Constitutional Vitals: Temp Pulse Resp BP Pulse Ox 98.0 F 93 H 20 128/68 100 07/30/19 07:36 07/30/19 07:36 07/30/19 07:36 07/30/19 07:36 07/30/19 07:36 General appearance: Present: no acute distress - EENT Eyes: Present: PERRL, EOM intact ENT: hearing intact, clear oral mucosa, dentition normal - Neck Neck: Present: supple, normal ROM - Respiratory Respiratory effort: normal Respiratory: bilateral: CTA - Cardiovascular Rhythm: regular Heart Sounds: Present: S1 & S2. Absent: gallop, rub - Extremities Extremities: no ischemia, No edema, Full ROM - Abdominal General gastrointestinal: soft, non-tender, non-distended, normal bowel sounds - Integumentary Integumentary: Present: clear, warm, dry - Neurologic Neurologic: CNII-XII intact, moves all extremities Results - Labs CBC & Chem 7: 07/30/19 05:16 07/30/19 05:16 Labs: Laboratory Last Values WBC 5.9 K/mm3 (4.5-11.0) 07/30/19 05:16 RBC 3.32 M/mm3 (3.65-5.03) L 07/30/19 05:16 Hgb 8.2 gm/dl (10.1-14.3) L 07/30/19 05:16 Hct 24.8 % (30.3-42.9) L 07/30/19 05:16 MCV 75 fl (79-97) L 07/30/19 05:16 MCH 25 pg (28-32) L 07/30/19 05:16 MCHC 33 % (30-34) 07/30/19 05:16 RDW 21.0 % (13.2-15.2) H 07/30/19 05:16 Plt Count 228 K/mm3 (140-440) 07/30/19 05:16 Lymph % (Auto) 16.3 % (13.4-35.0) 07/30/19 05:16 [place] % (Auto) 6.5 % (0.0-7.3) 07/30/19 05:16 Eos % (Auto) 1.0 % (0.0-4.3) 07/30/19 05:16 Baso % (Auto) 0.2 % (0.0-1.8) 07/30/19 05:16 Lymph # 1.0 K/mm3 (1.2-5.4) L 07/30/19 05:16 [place] # 0.4 K/mm3 (0.0-0.8) 07/30/19 05:16 Eos # 0.1 K/mm3 (0.0-0.4) 07/30/19 05:16 Baso # 0.0 K/mm3 (0.0-0.1) 07/30/19 05:16 Add Manual Diff Complete 07/26/19 10:51 Total Counted 100 07/26/19 10:51 Seg Neutrophils % 76.0 % (40.0-70.0) H 07/30/19 05:16 Seg Neuts % (Manual) 96.0 % (40.0-70.0) H 07/26/19 10:51 Band Neutrophils % 0 % 07/26/19 10:51 Lymphocytes % (Manual) 4.0 % (13.4-35.0) L 07/26/19 10:51 Reactive Lymphs % (Man) 0 % 07/26/19 10:51 Monocytes % (Manual) 0 % (0.0-7.3) 07/26/19 10:51 Eosinophils % (Manual) 0 % (0.0-4.3) 07/26/19 10:51 Basophils % (Manual) 0 % (0.0-1.8) 07/26/19 10:51 Metamyelocytes % 0 % 07/26/19 10:51 Myelocytes % 0 % 07/26/19 10:51 Promyelocytes % 0 % 07/26/19 10:51 Blast Cells % 0 % 07/26/19 10:51 Nucleated RBC % Not Reportable 07/26/19 10:51 Seg Neutrophils # 4.5 K/mm3 (1.8-7.7) 07/30/19 05:16 Seg Neutrophils # Man 9.6 K/mm3 (1.8-7.7) H 07/26/19 10:51 Band Neutrophils # 0.0 K/mm3 07/26/19 10:51 Lymphocytes # (Manual) 0.4 K/mm3 (1.2-5.4) L 07/26/19 10:51 Abs React Lymphs (Man) 0.0 K/mm3 07/26/19 10:51 Monocytes # (Manual) 0.0 K/mm3 (0.0-0.8) 07/26/19 10:51 Eosinophils # (Manual) 0.0 K/mm3 (0.0-0.4) 07/26/19 10:51 Basophils # (Manual) 0.0 K/mm3 (0.0-0.1) 07/26/19 10:51 Metamyelocytes # 0.0 K/mm3 07/26/19 10:51 Myelocytes # 0.0 K/mm3 07/26/19 10:51 Promyelocytes # 0.0 K/mm3 07/26/19 10:51 Blast Cells # 0.0 K/mm3 07/26/19 10:51 WBC Morphology Not Reportable 07/26/19 10:51 Hypersegmented Neuts Not Reportable 07/26/19 10:51 Hyposegmented Neuts Not Reportable 07/26/19 10:51 Hypogranular Neuts Not Reportable 07/26/19 10:51 Smudge Cells Not Reportable 07/26/19 10:51 Toxic Granulation Not Reportable 07/26/19 10:51 Toxic Vacuolation Not Reportable 07/26/19 10:51 Dohle Bodies Not Reportable 07/26/19 10:51 Pelger-Huet Anomaly Not Reportable 07/26/19 10:51 David Rods Not Reportable 07/26/19 10:51 Platelet Estimate Consistent w auto 07/26/19 10:51 Clumped Platelets Not Reportable 07/26/19 10:51 Plt Clumps, EDTA Not Reportable 07/26/19 10:51 Large Platelets Few 07/26/19 10:51 Giant Platelets Not Reportable 07/26/19 10:51 Platelet Satelliting Not Reportable 07/26/19 10:51 Plt Morphology Comment Not Reportable 07/26/19 10:51 RBC Morphology Not Reportable 07/26/19 10:51 Dimorphic RBCs Not Reportable 07/26/19 10:51 Polychromasia Few 07/26/19 10:51 Hypochromasia Few 07/26/19 10:51 Poikilocytosis Not Reportable 07/26/19 10:51 Anisocytosis Not Reportable 07/26/19 10:51 Microcytosis Not Reportable 07/26/19 10:51 Macrocytosis Not Reportable 07/26/19 10:51 Spherocytes Few 07/26/19 10:51 Pappenheimer Bodies Not Reportable 07/26/19 10:51 Sickle Cells Not Reportable 07/26/19 10:51 Target Cells Few 07/26/19 10:51 Tear Drop Cells Not Reportable 07/26/19 10:51 Ovalocytes Not Reportable 07/26/19 10:51 Helmet Cells Not Reportable 07/26/19 10:51 De Oliveira-Mcclelland Bodies Not Reportable 07/26/19 10:51 [place] Rings Not Reportable 07/26/19 10:51 [place] Cells Not Reportable 07/26/19 10:51 Bite Cells Not Reportable 07/26/19 10:51 Crenated Cell Not Reportable 07/26/19 10:51 Elliptocytes Few 07/26/19 10:51 Acanthocytes (Spur) Not Reportable 07/26/19 10:51 Rouleaux Not Reportable 07/26/19 10:51 Hemoglobin C Crystals Not Reportable 07/26/19 10:51 Schistocytes Not Reportable 07/26/19 10:51 Malaria parasites Not Reportable 07/26/19 10:51 Eddie Bodies Not Reportable 07/26/19 10:51 Hem Pathologist Commnt No 07/26/19 10:51 PT 20.0 Sec. (12.2-14.9) H 07/27/19 14:06 INR 1.67 (0.87-1.13) H 07/27/19 14:06 Sodium 147 mmol/L (137-145) H 07/30/19 05:16 Potassium 3.3 mmol/L (3.6-5.0) L 07/30/19 05:16 Chloride 112.5 mmol/L (98-107) H 07/30/19 05:16 Carbon Dioxide 20 mmol/L (22-30) L 07/30/19 05:16 Anion Gap 18 mmol/L 07/30/19 05:16 BUN 17 mg/dL (7-17) 07/30/19 05:16 Creatinine 0.8 mg/dL (0.7-1.2) 07/30/19 05:16 Estimated GFR > 60 ml/min 07/30/19 05:16 BUN/Creatinine Ratio 21 % 07/30/19 05:16 Glucose 163 mg/dL (65-100) H 07/30/19 05:16 POC Glucose 232 (70-105) H 07/26/19 10:45 Hemoglobin A1c 5.9 % (4-6) 07/27/19 07:29 Calcium 8.2 mg/dL (8.4-10.2) L 07/30/19 05:16 Magnesium 2.90 mg/dL (1.7-2.3) H 07/26/19 10:51 Total Bilirubin 0.40 mg/dL (0.1-1.2) 07/27/19 03:18 AST 30 units/L (5-40) 07/27/19 03:18 ALT 13 units/L (7-56) 07/27/19 03:18 Alkaline Phosphatase 107 units/L (35-129) 07/27/19 03:18 Total Protein 7.2 g/dL (6.3-8.2) 07/27/19 03:18 Albumin 3.1 g/dL (3.9-5) L 07/27/19 03:18 Albumin/Globulin Ratio 0.8 % 07/27/19 03:18 Urine Color Yellow (Yellow) 07/26/19 12:53 Urine Turbidity Slightly-cloudy (Clear) 07/26/19 12:53 Urine pH 5.0 (5.0-7.0) 07/26/19 12:53 Ur Specific [place] 1.013 (1.003-1.030) 07/26/19 12:53 Urine Protein <15 mg/dl mg/dL (Negative) 07/26/19 12:53 Urine Glucose (UA) Neg mg/dL (Negative) 07/26/19 12:53 Urine Ketones Neg mg/dL (Negative) 07/26/19 12:53 Urine Blood Neg (Negative) 07/26/19 12:53 Urine Nitrite Neg (Negative) 07/26/19 12:53 Urine Bilirubin Neg (Negative) 07/26/19 12:53 Urine Urobilinogen < 2.0 mg/dL (<2.0) 07/26/19 12:53 Ur Leukocyte Esterase Neg (Negative) 07/26/19 12:53 Urine WBC (Auto) 3.0 /HPF (0.0-6.0) 07/26/19 12:53 Urine RBC (Auto) 7.0 /HPF (0.0-6.0) 07/26/19 12:53 U Epithel Cells (Auto) < 1.0 /HPF (0-13.0) 07/26/19 12:53 Urine Bacteria (Auto) 1+ /HPF (Negative) 07/26/19 12:53 Hyaline Casts 1 /LPF 07/26/19 12:53 Urine Mucus Few /HPF 07/26/19 12:53 Active Medications - Current Medications Current Medications: Generic Name Dose Route Start Last Admin Trade Name Freq PRN Reason Stop Dose Admin Acetaminophen 650 mg 07/26/19 16:31 Tylenol PO Q4H PRN Pain MILD(1-3)/Fever >100.5/PAYAN Apixaban 5 mg 07/27/19 01:45 07/30/19 09:36 Eliquis PO 5 mg BID TERI Administration Clonidine HCl 0.2 mg 07/27/19 10:00 07/27/19 09:35 Catapres-Tts Patch TD 0.2 mg Mo TERI Administration Famotidine 10 mg 07/27/19 10:00 07/30/19 09:36 Pepcid IV 10 mg BID TERI Administration Hydromorphone HCl 0.5 mg 07/26/19 16:31 Dilaudid IV Q3H PRN Pain , Severe (7-10) Potassium Chloride/Dextrose/Sod Cl 30 meq in 1,000 mls @ 100 mls/hr 07/29/19 11:00 07/30/19 09:38 D5w/0.45% Nacl/Kcl 30 Meq IV 100 mls/hr DIRECT TERI Administration Ondansetron HCl 4 mg 07/26/19 16:31 Zofran IV Q8H PRN Nausea And Vomiting Oxycodone/Acetaminophen 1 tab 07/26/19 16:31 Percocet 5/325 PO Q6H PRN Pain, Moderate (4-6) Sodium Chloride 10 ml 07/26/19 22:00 07/30/19 09:37 Sodium Chloride Flush Syringe 10 Ml IV 10 ml BID TERI Administration Sodium Chloride 10 ml 07/26/19 16:31 Sodium Chloride Flush Syringe 10 Ml IV PRN PRN LINE FLUSH Nutrition/Malnutrition Assess - Dietary Evaluation Nutrition/Malnutrition Findings: Nutrition Notes Start: 07/27/19 11:04 Freq: Status: Active Protocol: Document 07/30/19 10:49 LP (Rec: 07/30/19 10:57 LP [id number]) Nutrition Notes Initial or Follow up Reassessment Current Diagnosis Acute Kidney Injury,Decubitus( Pressure Ulcer),Hypertension, Respiratory Failure,Stroke Other Pertinent Diagnosis L breast mass/cancer, encephalopathy, dehydration Current Diet Clear liquid Labs/Tests Na 147 K 3.3 BG 163 Pertinent Medications D5 1/2 NS with 30mEq KCL Height 5 ft 2 in Weight 49.895 kg [place] Body Weight (kg) 50.00 BMI 20.1 Subjective/Other Information Pt consumed 3 bites of applesauce per RN and drank a very small amount of Ensure clear. Burn Absent Trauma Absent GI Symptoms None Current % PO Negligible Minimum of two criteria Yes Energy Intake (non-severe) <75% Estimated Energy Requirement >7 days Body Fat Depletion Mild depletion (non-severe) Muscle Mass Mild Depletion (non-severe) #3 Nutrition Diagnosis Malnutrition Etiology chronic illness. 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 No Is Patient Ambulatory and/or Out of Bed No REE-([facility]-confined to bed) 1084.200 Kcal/Kg value to use for calculation 32 Approximate Energy Requirements Using 1597 kcal/Kg Calculation Used for Recommendations Kcal/kg Additional Notes Protein: 60-75g (1.2-1.5g/kg) Fluid: 1 ml/kcal or per MD Nutrition Intervention Change Diet Order: TF will need dobhoff placed once family decides Nutrition Support: Recommend Glucerna 1.2 at 50 ml/hr Flush 200 ml q4hr for hypernatremia Flush 100 ml q4hr once hypernatremia resolves Add Supplement/Snack (indicate name/kcal Ensure clear BID while on /protein ) clear liquid diet Provides kCal: 480 Provides Protein (gm) 16 Goal #1 Diet advancement and/or TF start when medically feasible Anticipated Discharge Needs: unable to determine at this time Follow-Up By: 07/31/19 Additional Comments Follow for POC
--- NOTE | 2019-07-30 16:04 | Progress Note ---
Assessment and Plan - Patient Problems (1) Hypokalemia Current Visit: Yes Status: Acute Plan to address problem: hypokalemia continue potassium replacement (2) EDILMA (acute kidney injury) Current Visit: Yes Status: Acute Plan to address problem: acute kidney injury, resolved. Continue free water replacement Avoid nephrotoxicmedications (3) Hypernatremia Current Visit: Yes Status: Acute Plan to address problem: hypernatremia e'll add hypotonic infusion continue free water replacement (4) Acidosis Current Visit: Yes Status: Acute Plan to address problem: acidosis We'll add bicarbonates to maintenance fluid Recheck labs Subjective Principal diagnosis: poor po intake Interval history: 84-year-old lady with left-sidedfungating mass recent CVA, also history of pulmonary embolism, admitted with decreased mental status and decreased oral intake Patient seen today Still appears confused. intravenous fluids ongoing there is no lower extremity edema. There is no shortness of breath Objective - Vital Signs Vital signs: Vital Signs - 12hr 07/30/19 07/30/19 07:36 13:02 Temperature 98.0 F 98.7 F Pulse Rate 93 H 100 H Respiratory 20 20 Rate Blood Pressure 128/68 141/69 O2 Sat by Pulse 100 100 Oximetry - General Appearance General appearance: chronically ill, frail EENT: ATNC, mucous membranes dry Neck: no JVD Respiratory: Present: Clear to Ascultation Cardiology: regular, S1S2 Gastrointestinal: normal, normoactive bowel sounds Integumentary: other (Mass right chest wall) Neurologic: confused Psychiatric: depressed - Lab 07/30/19 05:16 07/30/19 05:16 Most recent lab results Calcium 8.2 mg/dL (8.4-10.2) L 07/30/19 05:16 Magnesium 2.90 mg/dL (1.7-2.3) H 07/26/19 10:51 - Imaging Chest x-ray: image reviewed (i reviewed chest x-ray without any edema) Medications & Allergies - Medications Allergies/Adverse Reactions: Allergies No Known Allergies Allergy (Unverified 07/26/19 11:37) Home Medications: Home Medications Medication Instructions Recorded Confirmed Last Taken Type Apixaban 5 mg PO BID 07/26/19 07/26/19 Unknown History Ascorbic Acid 500 mg PO DAILY 07/26/19 07/26/19 Unknown History Cholecalciferol Vit D3 1,000 units PO DAILY 07/26/19 07/26/19 Unknown History Colace ORAL LIQ 100 mg PO BID 07/26/19 07/26/19 Unknown History Duloxetine HCl 30 mg PO DAILY 07/26/19 07/26/19 Unknown History Ferrous Sulfate 325 mg PO DAILY 07/26/19 07/26/19 Unknown History Lipitor 40 mg PO QHS 07/26/19 07/26/19 Unknown History Lisinopril 20 mg PO DAILY 07/26/19 07/26/19 Unknown History Melatonin 3 mg PO QHS 07/26/19 07/26/19 Unknown History Miralax 17 gm PO DAILY 07/26/19 07/26/19 Unknown History Norvasc 5 mg PO DAILY 07/26/19 07/26/19 Unknown History Potassium 1 meq PO DAILY 07/26/19 07/26/19 Unknown History Zinc Sulfate 1 cap PO DAILY 07/26/19 07/26/19 Unknown History predniSONE 50 mg PO QHS 07/26/19 07/26/19 Unknown History Active Medications: Generic Name Dose Route Start Last Admin Trade Name Freq PRN Reason Stop Dose Admin Acetaminophen 650 mg 07/26/19 16:31 Tylenol PO Q4H PRN Pain MILD(1-3)/Fever >100.5/PAYAN Apixaban 5 mg 07/27/19 01:45 07/30/19 09:36 Eliquis PO 5 mg BID TERI Administration Clonidine HCl 0.2 mg 07/27/19 10:00 07/27/19 09:35 Catapres-Tts Patch TD 0.2 mg Mo TERI Administration Famotidine 10 mg 07/27/19 10:00 07/30/19 09:36 Pepcid IV 10 mg BID TERI Administration Hydromorphone HCl 0.5 mg 07/26/19 16:31 Dilaudid IV Q3H PRN Pain , Severe (7-10) Potassium Chloride/Dextrose/Sod Cl 30 meq in 1,000 mls @ 100 mls/hr 07/29/19 11:00 07/30/19 09:38 D5w/0.45% Nacl/Kcl 30 Meq IV 100 mls/hr DIRECT TERI Administration Ondansetron HCl 4 mg 07/26/19 16:31 Zofran IV Q8H PRN Nausea And Vomiting Oxycodone/Acetaminophen 1 tab 07/26/19 16:31 Percocet 5/325 PO Q6H PRN Pain, Moderate (4-6) Sodium Chloride 10 ml 07/26/19 22:00 07/30/19 09:37 Sodium Chloride Flush Syringe 10 Ml IV 10 ml BID TERI Administration Sodium Chloride 10 ml 07/26/19 16:31 Sodium Chloride Flush Syringe 10 Ml IV PRN PRN LINE FLUSH
[2019-07-30] MEDS: POTASSIUM CHLORIDE ER 20 MEQ TAB PO SCH (17:07)
[2019-07-30] MEDS: SODIUM BICARBONATE IV SCH (17:07)
[2019-07-30] MEDS: DEXTROSE 5% IV SCH (17:07)
[2019-07-30] MEDS: WATER IV SCH (17:07)
[2019-07-31] MEDS: WATER IV SCH (02:45)
[2019-07-31] MEDS: DEXTROSE 5% IV SCH (02:45)
[2019-07-31] MEDS: SODIUM BICARBONATE IV SCH (02:45)
[2019-07-31 05:38] LABS: Basophils % (Auto) 0.2 % (0.0-1.8); Eosinophils % (Auto) 0.9 % (0.0-4.3); Hematocrit 25.1 % (30.3-42.9); Hemoglobin 8.2 gm/dl (10.1-14.3); Lymphocytes # (Auto) 0.7 K/mm3 (1.2-5.4); Lymphocytes % (Auto) 13.7 % (13.4-35.0); Mean Corpuscular HGB Conc 33 % (30-34); Mean Corpuscular Volume 76 fl (79-97); Monocytes # (Auto) 0.3 K/mm3 (0.0-0.8); Monocytes % (Auto) 6.3 % (0.0-7.3); Platelet Count 229 K/mm3 (140-440)
[2019-07-31 05:59] LABS: BUN/Creatinine Ratio 14; Blood Urea Nitrogen 11 mg/dL (7-17); Calcium 8.2 mg/dL (8.4-10.2); Hemolysis Index 14
[2019-07-31 07:56] VITALS: BP 141/76
[2019-07-31] MEDS: FAMOTIDINE 20 MG/2 ML INJ IV SCH (10:11)
[2019-07-31] MEDS: APIXABAN 5 MG TAB PO SCH (10:11)
[2019-07-31] MEDS: POTASSIUM CHLORIDE ER 20 MEQ TAB PO SCH (10:11)
--- NOTE | 2019-07-31 10:12 | Discharge Summary ---
Providers - Providers Date of Admission: 07/26/19 13:40 Date of discharge: 07/31/19 Attending physician: MARCI ROCHA 07/26/19 12:19 Consult to Physician [CONS] Urgent Comment: DARINEL Consulting Provider: GEMINI STUART Physician Instructions: CONSULT WAS CALLED TO /BARBARA Reason For Exam: dehydration, renal insuf 07/26/19 20:20 Physical Therapy Evaluation and Treat [CONS] Routine Comment: Reason For Exam: weakness 07/27/19 01:45 Consult to Physician [CONS] Routine Comment: DARINEL Consulting Provider: DAWOOD DALTON Physician Instructions: WAS NITIFIED/HERNANDEZ Reason For Exam: Poor oral intake 07/27/19 02:49 Consult to Wound/ET Nurse [CONS] Routine Reason For Exam: wound eval 07/27/19 13:47 Speech Therapy Evaluation and Treat [CONS] Routine Reason For Exam: diet recommenations 07/27/19 14:58 Occupational Therapy Evaluate and Treat [CONS] Routine Comment: Reason For Exam: Debility Primary care physician: [employer] Hospitalization Reason for admission: hypernatremia, encephalopathy Condition: Stable Hospital course: Ms Jama is an 84 y/o female admitted from a [facility] for AMS and poor PO intake. She was recently hospitalized at [facility] with respiratory failure/ PE -07/2019. She has a past medical hx of left breast CA, previous CVA with left sided weakness. The family previously declined PEG and wanted to see if the patient would start to eat on her own, however, family reports while in rehab, she did not eat very much or drink very much even when they would feed her. On admission the patient was found to have a NA level of 162. BUN/ Creat elevated. The patient was admitted with diagnosis of acute metabolic encephalopathy secondary to hypernatremia, severe protein calorie malnutrition and EDILMA due to vasomotor nephropathy. I revisited the discussion regarding PEG placement with the patient and the son who are still refusing at this time. The sodium and creatinine returned to normal range with IV fluid hydration and patient returned back to her baseline mental status. Patient is felt to have received maximal hospital benefit and will be discharged back to nursing facility. Dedicated discharge time 35 minutes. Disposition: [id number] SNF [facility] Time spent for discharge: 35 - Discharge Diagnoses (1) EDILMA (acute kidney injury) Status: Acute (2) Acute encephalopathy Status: Acute (3) Altered mental state Status: Acute (4) Breast cancer, left Status: Acute (5) Dehydration Status: Acute (6) Hx of ischemic right MCA stroke Status: Acute (7) Hx of pulmonary embolus Status: Acute (8) Hypernatremia Status: Acute (9) Hypokalemia Status: Acute (10) Renal insufficiency Status: Acute (11) HTN (hypertension) Status: Chronic Qualifiers: Hypertension type: essential hypertension Qualified Code(s): I10 - Essential (primary) hypertension (12) Malnutrition Status: Chronic Qualifiers: Malnutrition type: protein-calorie malnutrition Protein-calorie malnutrition severity: moderate Qualified Code(s): E44.0 - Moderate protein- calorie malnutrition (13) Poor fluid intake Status: Chronic (14) Vasomotor nephropathy Status: Acute Core Measure Documentation - Palliative Care Palliative Care/ Comfort Measures: Not Applicable - Core Measures Any of the following diagnoses?: none Exam - Constitutional Vitals: Temp Pulse Resp BP Pulse Ox 97.7 F 101 H 20 141/76 100 07/31/19 07:31 07/31/19 07:31 07/31/19 07:31 07/31/19 07:31 07/31/19 07:31 General appearance: Present: no acute distress, well-nourished - EENT Eyes: Present: PERRL ENT: hearing intact, clear oral mucosa - Neck Neck: Present: supple, normal ROM - Respiratory Respiratory effort: normal Respiratory: bilateral: CTA - Cardiovascular Heart Sounds: Present: S1 & S2. Absent: rub, click - Extremities Extremities: pulses symmetrical, No edema Peripheral Pulses: within normal limits - Abdominal General gastrointestinal: Present: soft, non-tender, non-distended, normal bowel sounds Female genitourinary: Present: normal - Integumentary Integumentary: Present: clear, warm, dry - Musculoskeletal Musculoskeletal: gait normal, strength equal bilaterally - Psychiatric Psychiatric: appropriate mood/affect, intact judgment & insight - Neurologic Neurologic: CNII-XII intact, moves all extremities Plan Activity: advance as tolerated Weight Bearing Status: Weight Bear as Tolerated Diet: regular Follow up with: PRIMARY CAREMD [Primary Care Provider] - 3-5 Days
== END 2019-07-31 14:00 | DRG 70 ==
LOC: ED 10:02 → 2B-ACE 13:40
PROVIDERS: ADMIT Internal Medicine; ATTEND Hospitalist
DX: G93.41 Metabolic encephalopathy (principal); N17.0 Acute kidney failure with tubular necrosis; E43 Unspecified severe protein-calorie malnutrition; E87.1 Hypo-osmolality and hyponatremia; E87.2 Acidosis; I69.354 Hemiplegia and hemiparesis following cerebral infarction affecting left non-dominant side; Z66 Do not resuscitate; C50.612 Malignant neoplasm of axillary tail of left female breast; E86.0 Dehydration; I10 Essential (primary) hypertension; E87.6 Hypokalemia; E88.09 Other disorders of plasma-protein metabolism, not elsewhere classified; D50.9 Iron deficiency anemia, unspecified; Z79.01 Long term (current) use of anticoagulants; Z86.11 Personal history of tuberculosis; Z86.711 Personal history of pulmonary embolism; Z79.899 Other long term (current) drug therapy; Z68.20 Body mass index [BMI] 20.0-20.9, adult; Z90.710 Acquired absence of both cervix and uterus; Z82.49 Family history of ischemic heart disease and other diseases of the circulatory system
CPT/HCPCS: 36415; 70450; 80048; 80053; 81001; 82962; 83036; 83735; 85007; 85025; 85027; 85610; 93005; 93010; G0378; J1170; J1642; J2405; J3480; J7070